=== PATIENT | female | born 2000 | race Caucasian/White ===

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

== ENCOUNTER 2020-06-22 14:12 | Emergency (ER) | payer BC, SELFPAY ==
[2020-06-22 14:31] VITALS: BP 130/90; PULSE 98; RESP 18; TEMP 36.6; O2SAT 97; BMI 29.6
--- NOTE | 2020-06-22 14:52 | HMH.EDUTC ---
[facility] [place] Disposition Clinical Impression: Exposure to COVID-19 virus Disposition: Home, Self-Care Condition on Discharge: Good Instructions: Preventing the Spread of Coronavirus Discharge Instructions Additional Instructions: Drink plenty of fluids. Take tylenol for pain or fever. Follow up with your regular doctor. GO TO THE ER FOR ANY WORSENING SYMPTOMS Referrals: Alejandro Avilez MD [Primary Care Provider] - Time of Disposition: 14:56 Medical Decision Making - Medical Records Medical records reviewed: No: I reviewed the patient's medical records. - Jasiel Inquiry Pt receiving controlled substance: No Vital Signs: 06/22/20 14:31 06/22/20 15:12 Temperature 97.9 F 97.9 F Temperature Source Oral Oral Pulse Rate 98 H Pulse Rate [Radial] 98 H Respiratory Rate 18 18 Blood Pressure 130/90 Blood Pressure [Right Arm] 130/90 Blood Pressure Mean [Right Arm] 103 Blood Pressure Source Automatic Cuff Blood Pressure Source [Right Arm] Automatic Cuff Blood Pressure Position Sitting Blood Pressure Position [Right Arm] Sitting 02 Sat by Pulse Oximetry 97 Oxygen Delivery Method Room Air Room Air Orders (Tests/Meds): ORDERS Category Date Time Status Covid-19 Nasal PCR ([facility]) Routine Lab 06/22/20 14:27 Received [facility] HPI - General Stated complaint: Covid test Time Seen by Provider: 06/22/20 14:52 Mode of Arrival: Ambulatory Source of Information: Patient Limitations: No Limitations Description of Symptoms (Recalled from Triage Doc. by RN): covid exposure HEENT Symptoms (Recalled from RN notes): No Resp Symptoms (Recalled from RN notes): No Skin Symptoms (Recalled from RN notes): No MS Symptoms (Recalled from RN notes): No Functional Status (Recalled from RN notes): wnl - History of Present Illness Provider Complaint: She was exposed to covid while at college. She denies any symptoms. - Related Data Home Medications Medication Instructions Recorded Confirmed Norgestimate-Ethinyl Estradiol 1 each PO DAILY 07/07/18 12/22/18 [Ortho Tri-Cyclen 28 Tablet] venlafaxine 37.5 mg tablet 37.5 mg PO BID 12/22/18 12/22/18 Previous Rx's Medication Instructions Recorded Azithromycin [Z-Iron 250mg Tab*] 250 mg PO UD DOSE PK #6 tab 01/24/20 Brompheniramine/Pseudoephed/Dm 5 - 10 ml PO Q46H 10 Days #180 ml 09/02/19 [Bromfed Dm Cough Syrup] Allergies Allergy/AdvReac Type Severity Reaction Status Date / Time Penicillins [PENICILLINS] Allergy Mild Hives Verified 12/22/18 16:59 - Worker's Comp Is this a Worker's Comp case?: No H History - Hepatitis A Screen Drug use history?: No High risk sexual behaviors?: No History of sexually transmitted infection?: No Currently employed?: No Childcare worker?: No Do you have indoor plumbing?: Yes Do you have electricity?: Yes Attestation statement:: This patient has been screened for Hepatitis A risk factors. I have reviewed the patient's past medical history: Yes Comment: Allergies Laterality Cases: Bilateral: Myringotomy (Ear Tubes) - Social History Smoking Status: Never smoker Alcohol Intake: never Occupational Status: student Housing: house Household Members: family Family Hx:: Diabetes, Heart Attack, Hypertension ROS Obtained: Yes All systems reviewed & no additional complaints - Constitutional Constitutional: Reports system reviewed and no additional complaints, except as docu - Eyes Eyes: Reports system reviewed and no additional complaints, except as docu - ENT Ears, Nose, Mouth, and Throat: Reports system reviewed and no additional complaints, except as docu - Cardiovascular Cardiovascular: Reports system reviewed and no additional complaints, except as docu Physical Exam - General General appearance: alert, in no apparent distress - Head Head exam: atraumatic, normocephalic, normal inspection - Eye Eye exam: Present: normal appearance, PERRL, EOMI - ENT ENT exam: Present: normal exam,
[2020-06-22 15:12] VITALS: BP 130/90; PULSE 98; RESP 18; TEMP 36.6; O2SAT 97
== END 2020-06-22 15:13 | disposition home or self-care (01) ==
PROVIDERS: Emergency Provider Nurse Practitioner Family; PCP Family Medicine
DX: Z20.828 Contact with and (suspected) exposure to other viral communicable diseases (principal); Z88.0 Allergy status to penicillin
CPT/HCPCS: 99201; U0003

== ENCOUNTER 2020-07-28 10:59 | Emergency (ER) | payer BC, SELFPAY ==
[2020-07-28 11:05] VITALS: BP 145/89; PULSE 120; RESP 20; TEMP 37.1; O2SAT 97; BMI 30.7
--- NOTE | 2020-07-28 11:28 | HMH.EDUTC ---
[facility] Disposition Clinical Impression: Exposure to COVID-19 virus Conjunctivitis Qualifiers: Conjunctivitis type: acute Acute conjunctivitis type: bacterial Laterality: right Qualified Code(s): H10.31 - Unspecified acute conjunctivitis, right eye Disposition: Home, Self-Care Condition on Discharge: Good Instructions: Conjunctivitis, DI for Conjunctivitis, Preventing the Spread of Coronavirus Discharge Instructions Additional Instructions: Use the eye drops as directed. Strict hand washing in the house hold, because conjunctivitis is very contagious. Follow up with your regular doctor. GO TO THE ER FOR ANY WORSENING SYMPTOMS OR CONCERNS Prescriptions: Sulfacetamide Sodium [Bleph-10] 1 drp EYE-BOTH Q3H 7 Days #1 bottle Transmission Status: Received by [id number] Referrals: Alejandro Avilez MD [Primary Care Provider] - Time of Disposition: 11:34 Medical Decision Making - Medical Records Medical records reviewed: No: I reviewed the patient's medical records. - Jasiel Inquiry Pt receiving controlled substance: No Vital Signs: 07/28/20 11:05 07/28/20 11:34 Temperature 98.8 F 98.8 F Temperature Source Oral Pulse Rate 120 H Pulse Rate [Right Brachial] 120 H Respiratory Rate 20 20 Blood Pressure 145/89 H Blood Pressure [Right Arm] 145/89 H Blood Pressure Mean [Right Arm] 107 Blood Pressure Source [Right Arm] Automatic Cuff Blood Pressure Position [Right Arm] Sitting 02 Sat by Pulse Oximetry 97 Oxygen Delivery Method Room Air - Lab Data Lab Results 07/28/20 11:10: SARS-CoV-2 (PCR) Detected [facility] HPI - General Stated complaint: covid exposure, swollen eye Time Seen by Provider: 07/28/20 11:28 Mode of Arrival: Ambulatory Source of Information: Patient Limitations: No Limitations Description of Symptoms (Recalled from Triage Doc. by RN): PATIENT C/O RIGHT EYE ITCHY, SWOLLEN, BURNING AND RUNNING SINCE YESTERDAY. ALSO REQUESTING COVID TEST D/T EXPOSURE, NO SYMPTOMS HEENT Symptoms (Recalled from RN notes): Yes Resp Symptoms (Recalled from RN notes): No Skin Symptoms (Recalled from RN notes): No MS Symptoms (Recalled from RN notes): No Functional Status (Recalled from RN notes): WNL - History of Present Illness Provider Complaint: She states that she has been having right eye discomfort since yesterday. She denies any injury or foreign body. She denies that her vision is decreased in the eye. She was also exposed to covid-19 and needs a test. She denies any fever, chills, cough or other symptoms. - Related Data Home Medications Medication Instructions Recorded Confirmed Norgestimate-Ethinyl Estradiol 1 each PO DAILY 07/07/18 07/28/20 [Ortho Tri-Cyclen 28 Tablet] venlafaxine 37.5 mg tablet 37.5 mg PO BID 12/22/18 07/28/20 Previous Rx's Medication Instructions Recorded Sulfacetamide Sodium [Bleph-10] 1 drp EYE-BOTH Q3H 7 Days #1 bottle 07/28/20 Allergies Allergy/AdvReac Type Severity Reaction Status Date / Time Penicillins [PENICILLINS] Allergy Mild Hives Verified 12/22/18 16:59 - Worker's Comp Is this a Worker's Comp case?: No [facility] History - Hepatitis A Screen Drug use history?: No High risk sexual behaviors?: No History of sexually transmitted infection?: No Currently employed?: No Childcare worker?: No Do you have indoor plumbing?: Yes Do you have electricity?: Yes Attestation statement:: This patient has been screened for Hepatitis A risk factors. I have reviewed the patient's past medical history: Yes Comment: Allergies Laterality Cases: Bilateral: Myringotomy (Ear Tubes) - Social History Smoking Status: Never smoker Alcohol Intake: never Occupational Status: other Housing: house Household Members: family Family Hx:: Diabetes, Heart Attack, Hypertension ROS Obtained: Yes All systems reviewed & no additional complaints - Constitutional Constitutional: Denies chills, Denies fever(s) - Eyes Eyes: Reports as per HPI,
[2020-07-28 11:34] VITALS: BP 145/89; PULSE 120; RESP 20; TEMP 37.1; O2SAT 97
[2020-07-29 09:29] LABS: Covid-19 Nasal PCR Sendout UK DETECTED
--- NOTE | 2020-07-29 09:29 | PC.NURSE ---
VM left for patient to return call
--- NOTE | 2020-07-29 09:42 | PC.NURSE ---
PATIENT NOTIFIED OF POSITIVE COVID RESULTS
== END 2020-07-28 11:36 | disposition home or self-care (01) ==
PROVIDERS: Emergency Provider Nurse Practitioner Family; PCP Family Medicine
DX: U07.1 COVID-19 (principal); H10.31 Unspecified acute conjunctivitis, right eye; Z88.0 Allergy status to penicillin
CPT/HCPCS: 99201; U0003

== ENCOUNTER 2021-07-09 18:45 | Emergency (ER) | payer BC, SELFPAY ==
[2021-07-09 19:33] VITALS: BP 122/85; PULSE 113; RESP 18; TEMP 37.3; O2SAT 97; BMI 30.4
[2021-07-09 19:36] LABS: UTC Strep Screen (Rapid) Negative (Negative)
--- NOTE | 2021-07-09 20:08 | HMH.EDUTC ---
[facility] Disposition Clinical Impression: Pharyngitis Qualifiers: Pharyngitis/tonsillitis etiology: unspecified etiology Qualified Code(s): J02.9 - Acute pharyngitis, unspecified Disposition: Home, Self-Care Condition on Discharge: Good Instructions: DI for Strep Throat, Preventing the Spread of Coronavirus Discharge Instructions Additional Instructions: Take tylenol or ibuprofen for pain or fever. Take the medications as directed. Follow up with your regular doctor. GO TO THE ER FOR ANY WORSENING SYMPTOMS Throw your tooth brush away and get a new one. Quarantine until you know the results of your covid-19 test. If it is positive, the health department should call you and give you further instructions about your length of Quarantine and other things. Notify your school or workplace of your results and follow their instructions regarding return to work/school. Prescriptions: Brompheniramine/Pseudoephed/Dm [Bromfed Dm Cough Syrup] 5 ml PO Q6HP PRN #240 ml PRN Reason: Cough Transmission Status: Pending to [facility] Azithromycin [Z-Iron 250mg Tab*] 250 mg PO UD DOSE PK #6 tab Transmission Status: Pending to [facility] Referrals: Alejandro Avilez MD [Primary Care Provider] - Forms: Work/School Release Time of Disposition: 20:22 Medical Decision Making - Medical Records Medical records reviewed: No: I reviewed the patient's medical records. - Jasiel Inquiry Pt receiving controlled substance: No Vital Signs: 07/09/21 19:33 Temperature 99.2 F Temperature Source Oral Pulse Rate [Left] 113 H Respiratory Rate 18 Blood Pressure [Right Arm] 122/85 Blood Pressure Mean [Right Arm] 97 02 Sat by Pulse Oximetry 97 - Lab Data Lab results reviewed: Yes: I reviewed the patient's lab results. Lab Results 07/09/21 19:23: Strep Scn Rapid Clinic Negative Orders (Tests/Meds): ORDERS Category Date Time Status Strep Screen Confirmation Routine Micro 07/09/21 19:23 Received [facility] [place] HPI - General Stated complaint: sore throat, maryellen Time Seen by Provider: 07/09/21 20:08 Mode of Arrival: Ambulatory Source of Information: Patient Limitations: No Limitations Description of Symptoms (Recalled from Triage Doc. by RN): pt c/o a sore throat and congestion since this am. HEENT Symptoms (Recalled from RN notes): Yes (sore throat and congestion) Resp Symptoms (Recalled from RN notes): No Skin Symptoms (Recalled from RN notes): No MS Symptoms (Recalled from RN notes): No Functional Status (Recalled from RN notes): wnl - History of Present Illness Provider Complaint: She states that since last night she has had a sore throat. Throughout today, she started having a low grade fever and chills also. She denies any chest congestion or cough. She gets strep throat occasionally and it always feels like this when it starts. - Related Data Home Medications Medication Instructions Recorded Confirmed Norgestimate-Ethinyl Estradiol 1 each PO DAILY 07/07/18 07/28/20 [Ortho Tri-Cyclen 28 Tablet] venlafaxine 37.5 mg tablet 37.5 mg PO BID 12/22/18 07/28/20 Previous Rx's Medication Instructions Recorded Sulfacetamide Sodium [Bleph-10] 1 drp EYE-BOTH Q3H 7 Days #1 bottle 07/28/20 Azithromycin [Z-Iron 250mg Tab*] 250 mg PO UD DOSE PK #6 tab 07/09/21 Brompheniramine/Pseudoephed/Dm 5 ml PO Q6HP PRN #240 ml 07/09/21 [Bromfed Dm Cough Syrup] Allergies Allergy/AdvReac Type Severity Reaction Status Date / Time Penicillins [PENICILLINS] Allergy Mild Hives Verified 12/22/18 16:59 - Worker's Comp Is this a Worker's Comp case?: No [facility] History - Hepatitis A Screen Drug use history?: No High risk sexual behaviors?: No History of sexually transmitted infection?: No Currently employed?: No Childcare worker?: No Do you have indoor plumbing?: Yes Do you have electricity?: Yes Attestation statement:: This patient has been screened for Hepatitis A risk factors.
[2021-07-09 20:30] VITALS: BP 122/85; PULSE 113; RESP 18; TEMP 37.3
== END 2021-07-09 20:32 | disposition home or self-care (01) ==
PROVIDERS: Emergency Provider Nurse Practitioner Family; PCP Family Medicine
DX: J02.9 Acute pharyngitis, unspecified (principal); Z20.822 Contact with and (suspected) exposure to COVID-19; Z88.0 Allergy status to penicillin
CPT/HCPCS: 87880; 99203; C9803; G0463; U0003; U0005

== ENCOUNTER 2023-03-11 17:42 | Outpatient (CLI) | payer BC, SELFPAY ==
[2023-03-11 17:51] VITALS: BMI 37.0
== END 2023-03-11 17:57 | disposition home or self-care (01) ==
LOC: UTC.OUT 17:44
PROVIDERS: PCP Family Medicine; Visit Provider Nurse Practitioner Family
DX: Z11.1 Encounter for screening for respiratory tuberculosis (principal)
CPT/HCPCS: 86580

== ENCOUNTER 2024-05-10 11:28 | Emergency (ER) | payer OTHER, SELFPAY ==
[2024-05-10 11:50] VITALS: BP 114/76; PULSE 85; RESP 20; TEMP 36.8; O2SAT 98; BMI 37.0
--- NOTE | 2024-05-10 11:51 | ED_ITS ---
Discharge Plan Disposition Patient Disposition: Home, Self-Care Condition: Good Prescriptions Prescriptions: New azithromycin [Zithromax] 250 mg tablet 250 mg PO UD DOSE PK Qty: 6 0RF Rx Instructions: Take two (2) tablets today, then one (1) tablet days #2 thru #5 methylprednisolone 4 mg Tablets,Dose Pack 4 mg PO DIRECTED 6 Days Qty: 21 0RF Rx Instructions: Take 1 pack as directed for 6 days nhutuvibviiecwa-yhpvgqfgz-PZ [Bromfed DM] 2-30-10 mg/5 mL Syrup 5 ml PO Q6H PRN (Reason: Cough) Qty: 240 0RF No Action venlafaxine 37.5 mg tablet 75 mg PO BID Referrals Follow up/Referrals: Alejandro Avilez MD [Primary Care Provider] - See instructions Activity Restrictions/Add. Instructions Additional Instructions/Restrictions: Drink plenty of fluids. Take tylenol or ibuprofen for pain or fever. Take the medications as directed. Follow up with your regular doctor. GO TO THE ER FOR ANY WORSENING SYMPTOMS Clinical Impressions Clinical Impression: Sinusitis, Acute viral syndrome Pharyngitis Qualifiers: Pharyngitis/tonsillitis etiology: unspecified etiology Qualified Code(s): J02.9 - Acute pharyngitis, unspecified Stand Alone Forms Stand Alone Forms: Work/School Release Instructions Patient Instructions: Sinusitis, DI for Sinusitis Print Language Print Language: Turkmen Discharge ED Provider: Ricki Fernandez [facility] [place] H[place] General Stated complaint: head congestion, sore throat Time Seen by Provider: 05/10/24 11:51 Related Data Home Medications ?Medication ?Instructions ?Recorded ?Confirmed venlafaxine 37.5 mg tablet 75 mg PO BID Anxiety 12/22/18 05/10/24 Previous Rx's ?Medication ?Instructions ?Recorded azithromycin 250 mg tablet 250 mg PO UD DOSE PK #6 tabs 05/10/24 (Zithromax) mjsfrbklonmfccf-zkzfbuglmqibxba-NV 5 ml PO Q6H PRN Cough #240 mL 05/10/24 2 mg-30 mg-10 mg/5 mL oral syrup (Bromfed DM) methylprednisolone 4 mg tablets in 4 mg PO DIRECTED 6 days #21 tabs 05/10/24 a dose pack Allergies Allergy/AdvReac Type Severity Reaction Status Date / Time Penicillins [PENICILLINS] Allergy Mild Hives Verified 12/22/18 16:59 [facility] Disclaimer: The information contained in this section may have been updated after the patient was seen, as this information can be updated by other users. Medical History (Updated 05/10/24 @ 12:47 by Ricki Fernandez APRN) Anxiety Migraine Surgical History (Updated 05/10/24 @ 12:03 by Jane Trinidad RN) History of tympanostomy tube placement History of tonsillectomy Social History Smoking Status: Never smoker second hand exposure: No alcohol intake: never current occupational status: other Travel in the last 8 weeks: None household members: family housing: house ROS Obtained: Yes All systems reviewed & no additional complaints except as documented Constitutional Constitutional: Reports chills and Reports fever(s) Eyes Eyes: Denies eye discharge ENT Ears, Nose, Mouth, and Throat: Reports as per HPI Cardiovascular Cardiovascular: Denies chest pain Respiratory Respiratory: Denies chest congestion and Reports cough Gastrointestinal Gastrointestingal: Reports nausea; Denies abdominal pain, constipation, cramping, diarrhea or vomiting Musculoskeletal Musculoskeletal: Denies arthralgias Integumentary/Breasts Skin/Breast: Denies rash Neurologic Neurologic: Denies paresthesias Physical Exam General General appearance: alert and in no apparent distress Head Head exam: atraumatic, normocephalic and normal inspection Eye Eye exam: Present normal appearance, PERRL and EOMI ENT ENT exam: Present mucous membranes moist and normal external ear exam Expanded ENT Exam TM/Canal exam: Bilateral TM: erythema and bulging Nose exam: Absent sinus tenderness Mouth exam: Present normal external inspection; Absent drooling Teeth exam: Present normal inspection Throat exam: Present tonsillar erythema, tonsillomegaly and tonsillar exudate Neck Neck exam: Present normal inspection, full ROM and trachea midline; Absent tenderness, meningismus or lymphadenopathy Chest Chest inspection: Present normal inspection and symmetric chest wall rise; Absent tenderness Respiratory Respiratory exam: Present normal lung sounds bilaterally; Absent respiratory distress, wheezes, stridor or accessory muscle use Cardiovascular Cardiovascular exam: Present regular rate and normal rhythm; Absent systolic murmur or diastolic murmur Abdominal Exam Abdominal exam: Present soft and normal bowel sounds; Absent distention, tenderness, guarding, rebound or rigidity Extremities Exam Extremities exam: Present normal inspection and normal capillary refill; Absent calf tenderness Back Exam Back exam: Present normal inspection and full ROM; Absent tenderness, CVA tenderness (R) or CVA tenderness (L) Neurological Exam Neurological exam: Present alert, oriented X3 and CN II-XII intact Psychiatric Psychiatric exam: Present normal affect and normal mood Skin Skin exam: Present warm, dry, intact and normal color Medical Decision Making Medical Records Medical records reviewed: No I reviewed the patient's medical records. Screening: Per USPSTF and CDC recommendations, given the prevalence of disease in our [facility], it is our hospital?s policy to screen for HIV and viral Hepatitis for all patients aged 18 and over and those with ongoing risk factors. Jasiel Inquiry Pt receiving controlled substance: No Lab Data Lab results reviewed: Yes I reviewed the patient's lab results.
[2024-05-10 12:00] LABS: UTC Strep Screen (Rapid) Negative (Negative)
[2024-05-10 12:54] VITALS: BP 114/76; PULSE 85; RESP 20; TEMP 36.8; O2SAT 98
[2024-05-10 12:59] LABS: Influenza A, PCR Not Detected (NotDetected); Influenza B, PCR Not Detected (NotDetected)
[2024-05-10 14:02] LABS: Coronavirus 19, PCR Detected (NotDetected)
== END 2024-05-10 12:57 | disposition home or self-care (01) ==
PROVIDERS: Emergency Provider Nurse Practitioner Family; PCP Family Medicine
DX: J02.9 Acute pharyngitis, unspecified (principal)
CPT/HCPCS: 87636; 87880; 99212; G0381

== ENCOUNTER 2024-07-26 10:34 | Emergency (ER) | payer SELFPAY ==
[2024-07-26 10:35] VITALS: BP 132/91; PULSE 97; RESP 16; TEMP 36.7; O2SAT 98; BMI 36.5
--- NOTE | 2024-07-26 10:37 | PC.NURSE ---
supervisor photocomposition notified of employee needle stick
--- NOTE | 2024-07-26 11:25 | PC.NURSE ---
callled and talked to Mindi at . Pt had a Hep B titer October 2023 that was good, and a TDAP vax 2023
[2024-07-26 11:31] LABS: Activated Partial Thrombo Time 26.7 seconds (22.8-30.6); Basophils # 0.1 K/mm3 (0-0.2); Basophils % 1.6 % (0.1-2.0); Eosinophils # 0.1 K/mm3 (0.0-0.4); Eosinophils % 1.6 % (0.1-12.0); Hematocrit 39.7 % (37.0-47.0); Hemoglobin 13.6 g/dL (12.2-16.2); INR 0.95 (0.9-1.1); Lymphocytes # 2.9 K/mm3 (0.7-4.5); Lymphocytes % 34.5 % (10-50); Mean Corpuscular HGB Conc 34.1 g/dL (31.8-35.4); Mean Corpuscular Hemoglobin 29.3 pg (27.0-31.2); Mean Corpuscular Volume 85.9 fl (81-99); Mean Platelet Volume 8.6 fl (7.4-10.4); Monocytes # 0.5 K/mm3 (0.1-1.0); Monocytes % 5.9 % (1.7-9.3); Neutrophils # 4.7 K/mm3 (1.8-7.8); Neutrophils % 56.5 % (37.0-80.0); Platelet Count 375 K/mm3 (142-424); Prothrombin Time 10.7 seconds (10.1-12.5); Red Blood Count 4.62 M/mm3 (4.20-5.40); Red Cell Distribution Width 14.2 % (11.5-17.5); White Blood Count 8.3 K/mm3 (4.8-10.8)
[2024-07-26 11:32] LABS: Alanine Aminotransferase 25 U/L (12-78); Albumin Level 4.5 g/dl (3.5-5.0); Alkaline Phosphatase 70 U/L (38-126); Aspartate Amino Transferase 41 U/L (14-36); Bilirubin,Direct 0.3 mg/dl (0.0-0.4); Bilirubin,Indirect 0.2 mg/dL (0.0-0.9); Bilirubin,Total 0.5 mg/dl (0.2-1.3); Bilirubin,Unconjugated 0.2 mg/dL (0.0-1.1); Total Protein,Serum 7.4 g/dl (6.3-8.2)
[2024-07-26] MEDS: ONDANSETRON 4MG ODT 4 MG SL (11:33)
[2024-07-26] MEDS: EMTRICITABINE/TENOFOVIR 200/300MG TAB 1 EACH PO (11:33)
[2024-07-26] MEDS: RALTEGRAVIR 400MG TABLET 400 MG PO (11:34)
[2024-07-26 12:17] VITALS: BP 126/83; PULSE 89; RESP 18; TEMP 36.6; O2SAT 95
--- NOTE | 2024-07-26 12:17 | ED_ITS ---
Discharge Plan Disposition Patient Disposition: Home, Self-Care Condition: Good Prescriptions Prescriptions: New ondansetron 4 mg tablet,disintegrating 4 mg PO Q8H PRN (Reason: nausea and vomiting) 4 Days Qty: 12 0RF raltegravir 400 mg tablet 400 mg PO BID 28 Days Qty: 56 0RF emtricitabine-tenofovir (TDF) [Truvada] 200-300 mg tablet 1 tab PO DAILY 28 Days Qty: 28 0RF No Action venlafaxine 37.5 mg tablet 75 mg PO BID azithromycin [Zithromax] 250 mg tablet 250 mg PO UD DOSE PK Qty: 6 0RF Rx Instructions: Take two (2) tablets today, then one (1) tablet days #2 thru #5 methylprednisolone 4 mg Tablets,Dose Pack 4 mg PO DIRECTED 6 Days Qty: 21 0RF Rx Instructions: Take 1 pack as directed for 6 days losjjzgnkcfwjjp-utfmlfzqe-JT [Bromfed DM] 2-30-10 mg/5 mL Syrup 5 ml PO Q6H PRN (Reason: Cough) Qty: 240 0RF Referrals Follow up/Referrals: Alejandro Avilez MD [Primary Care Provider] - See instructions Activity Restrictions/Add. Instructions Additional Instructions/Restrictions: You were evaluated in the emergency department today. Out of an abundance of precaution, we are starting you on postexposure prophylaxis for HIV. 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 by RN): Pt presents to ER after a needle-stick to L thumb. States that she was securing the needle from a pt's thyroid biopsy into it's container, when it slipped and stuck her left thumb. States it did not bleed. 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 Pt did wash her thumb/hand after this event. History of Present Illness HPI narrative: This patient is a 23-year-old female who denies significant past medical history presenting to the emergency department for evaluation with concern for needle stick injury and blood exposure upstairs. 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 She does have small skin wound but it did not bleed. The patient undergoing the biopsy/source of blood exposure has unknown hepatitis/HIV status with unknown risk factors. She did wash her hands thoroughly with soap and water afterward. Supervisors have been notified. Patient denies any significant past medical history. She is up-to-date on vaccinations, including hepatitis and Tdap. We verified with a chart that the patient had good hepatitis B titers in October and also had Tdap booster at that time. Related Data Home Medications ?Medication ?Instructions ?Recorded ?Confirmed venlafaxine 37.5 mg tablet 75 mg PO BID Anxiety 12/22/18 05/10/24 Previous Rx's ?Medication ?Instructions ?Recorded azithromycin 250 mg tablet 250 mg PO UD DOSE PK #6 tabs 05/10/24 (Zithromax) livtkuttujohjcz-aigcmjzegxfupzn-RA 5 ml PO Q6H PRN Cough #240 mL 05/10/24 2 mg-30 mg-10 mg/5 mL oral syrup (Bromfed DM) methylprednisolone 4 mg tablets in 4 mg PO DIRECTED 6 days #21 tabs 05/10/24 a dose pack emtricitabine 200 mg-tenofovir 1 tab PO DAILY 4 weeks #28 tabs 07/26/24 disoproxil fumarate 300 mg tablet (Truvada) ondansetron 4 mg disintegrating 4 mg PO Q8H PRN nausea and 07/26/24 tablet vomiting 4 days #12 tabs raltegravir 400 mg tablet 400 mg PO BID 4 weeks #56 tabs 07/26/24 Allergies Allergy/AdvReac Type Severity Reaction Status Date / Time Penicillins (PENICILLINS) Allergy Mild Hives Verified 12/22/18 16:59 [facility] Disclaimer: The information contained in this section may have been updated after the patient was seen, as this information can be updated by other users. Medical History Anxiety Migraine Surgical History History of tympanostomy tube placement History of tonsillectomy Social History Smoking Status: Never smoker second hand exposure: No alcohol intake: never current occupational status: other Travel in the last 8 weeks: None household members: family housing: house Have you lived/traveled outside US in past 30 days?: No Contact w/someone who lives/traveled outside US past 30 days?: No Exposure to someone with infectious disease in past 14 days?: No Do you have a fever (greater than 100.4 F or 38 C)?: No Have you tested positive for COVID-19: No Exposed to someone with COVID-19 in past 14 days?: No Do you have a sore throat?: No Do you have a cough?: No Do you have any weakness?: No Do you have any diarrhea?: No Are you experiencing any unusual bleeding?: No Do you have any muscle aches/pain?: No Do you have any abdominal pain?: No Are you experiencing loss of taste or smell?: No Other Medical History Have you received the Flu Vaccine for this season: No Have you received the Pneumonia Vaccine: No ROS Obtained: Yes All systems reviewed & no additional complaints except as documented Physical Exam General General appearance: alert and in no apparent distress Head Head exam: atraumatic and normocephalic Eye Eye exam: Present normal appearance, PERRL and EOMI ENT ENT exam: Present normal exam, normal oropharynx, mucous membranes moist and normal external ear exam Neck Neck exam: Present normal inspection, full ROM and trachea midline; Absent tenderness Chest Chest inspection: Present normal inspection and symmetric chest wall rise; Absent tenderness Respiratory Respiratory exam: Present normal lung sounds bilaterally; Absent respiratory distress, wheezes, stridor or accessory muscle use Cardiovascular Cardiovascular exam: Present regular rate and normal rhythm Abdominal Exam Abdominal exam: Present soft; Absent distention, tenderness or guarding Extremities Exam Extremities exam: Present normal inspection, full ROM and normal capillary refill; Absent tenderness or edema Expanded Upper Extremity Exam Left: Hand L/R back image: 2 1. punctate needle stick wound Back Exam Back exam: Present normal inspection and full ROM; Absent tenderness Neurological Exam Neurological exam: Present alert, oriented X3, CN II-XII intact and normal gait; Absent motor sensory deficit Psychiatric Psychiatric exam: Present normal affect and normal mood Skin Skin exam: Present warm and dry Medical Decision Making Medical Records Medical records reviewed: Yes I reviewed the patient's medical records. Screening: Per USPSTF and CDC recommendations, given the prevalence of disease in our region, it is our hospital?s policy to screen for HIV and viral Hepatitis for all patients aged 18 and over and those with ongoing risk factors. Jasiel Inquiry Pt receiving controlled substance: No Vital Signs: 07/26/24 10:35 Temperature 98.0 F Temperature Source Oral Pulse Rate [Right] 97 H Respiratory Rate 16 Blood Pressure [Right Arm] 132/91 H Blood Pressure Mean [Right Arm] 104 Blood Pressure Source [Right Arm] Automatic Cuff 02 Sat by Pulse Oximetry 98 Oxygen Delivery Method Room Air Lab Data Lab results reviewed: Yes I reviewed the patient's lab results. Lab Results 07/26/24 11:10: WBC 8.3, RBC 4.62, Hgb 13.6, Hct 39.7, MCV 85.9, MCH 29.3, MCHC 34.1, RDW 14.2, Plt Count 375, MPV 8.6, Neut % (Auto) 56.5, Lymph % (Auto) 34.5, [place] % (Auto) 5.9, Eos % (Auto) 1.6, Baso % (Auto) 1.6, Neut # (Auto) 4.7, Lymph # (Auto) 2.9, [place] # (Auto) 0.5, Eos # (Auto) 0.1, Baso # (Auto) 0.1, PT 10.7, INR 0.95, APTT 26.7, Total Bilirubin 0.5, Direct Bilirubin 0.3, Conjugated Bilirubin 0.0, Indirect Bilirubin 0.2, Unconjugated Bilirubin 0.2, AST 41 H, ALT 25, Alkaline Phosphatase 70, Total Protein 7.4, Albumin 4.5 07/26/24 11:10 Orders (Tests/Meds): ED MEDICATIONS Discontinued Medications Generic Name Dose Route Start Last Admin Trade Name Freq PRN Reason Stop Dose Admin Emtricitabine/Tenofovir 1 each 07/26/24 11:21 07/26/24 11:33 Emtricitabine/Tenofovir 200/300mg Tab PO 07/26/24 11:22 1 each ONCE ONE Administration Ondansetron HCl 4 mg 07/26/24 11:21 07/26/24 11:33 Ondansetron 4mg Odt SL 12/17/24 11:22 4 mg ONCE ONE Administration Raltegravir 400 mg 07/26/24 11:21 07/26/24 11:34 Raltegravir 400mg Tablet PO 07/26/24 11:22 400 mg ONCE ONE Administration ORDERS Category Date Time Status Activated Partial Thrombo Time Stat Lab 07/26/24 11:10 Completed CBC w/Auto Diff [Complete Blood Count Auto Diff] Stat Lab 07/26/24 11:10 Completed HIV Combo Stat Lab 07/26/24 11:10 Received Hepatitis B Surf Ab Quant Stat Lab 07/26/24 11:10 Received Hepatitis B surface antigen screen [HBsAg Screen] Stat Lab 07/26/24 11:10 Received Hepatitis C Antibody Stat Lab 07/26/24 11:10 Received Liver Panel Stat Lab 07/26/24 11:10 Completed Prothrombin Time INR Stat Lab 07/26/24 11:10 Completed UDS [Drug Screen,Urine] Stat Lab 07/26/24 10:50 Ordered Medical Decision Narrative: In summary, this patient is a 23-year-old female presenting to the Emergency Department for evaluation of needlestick injury with bloodborne pathogen exposure. Differential diagnoses considered include but are not limited to HIV exposure, hepatitis exposure. Ruling out the most morbid conditions drove assessment. On exam, patient does have a small punctate wound from needlestick injury. 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 Unknown hepatitis/HIV status/risk factors for the patient whose blood she was exposed to. Based on our postexposure hospital protocol, labs were ordered for baseline including CBC, liver panel, hepatitis testing, HIV testing. AST is very mildly elevated at baseline but otherwise labs are reassuring. Patient is already vaccinated against hepatitis B with good titers and also is up-to-date on Tdap. After shared decision making of risk versus benefit, patient elects to go ahead and proceed with postexposure prophylaxis. She was given first dose of Truvada and raltegravir here. I also gave her Zofran to combat any potential nausea as a side effect. After our protocol for the hospital was followed and patient was given instructions for follow-up and repeat labs, she was deemed to be appropriate for discharge. She was given prescriptions for 4 weeks of Truvada and raltegravir as well as Zofran to have as needed for nausea and vomiting. She was given instructions for use, strict return precautions, and she was discharged after all questions were answered. Critical Care Critical Care Time Critical Care Time: No
[2024-07-26 12:31] LABS: HIV Combo NEGATIVE (Negative)
[2024-07-26 12:42] LABS: COC Drug Screen In House Collection Only
[2024-07-27 06:22] LABS: Hepatitis B Surf Ab Quant 6.7 mIU/mL (Immunity>10); Hepatitis B Surface Antigen Negative (Negative); Hepatitis C Antibody Non Reactive (Non Reactive)
== END 2024-07-26 12:19 | disposition home or self-care (01) ==
PROVIDERS: Emergency Provider Emergency Medicine; PCP Family Medicine
DX: S61.032A Puncture wound without foreign body of left thumb without damage to nail, initial encounter (principal); W46.1XXA Contact with contaminated hypodermic needle, initial encounter; M79.645 Pain in left finger(s); Z77.21 Contact with and (suspected) exposure to potentially hazardous body fluids
CPT/HCPCS: 80076; 80305; 85025; 85610; 85730; 86706; 87340; 87380; 87389; 99283; Q0162

== ENCOUNTER 2024-10-21 14:33 | Outpatient (CLI) | payer OTHER, SELFPAY ==
[2024-10-21 15:42] LABS: HCG,Quantitative 631 mIU/ml (0-5.42)
[2024-10-22 05:21] LABS: Progesterone 13.2 ng/mL (.)
== END 2024-10-21 23:59 | disposition home or self-care (01) ==
LOC: LAB 14:35
PROVIDERS: PCP Family Medicine; Visit Provider Obstetrics & Gynecology
DX: Z32.01 Encounter for pregnancy test, result positive (principal)
CPT/HCPCS: 36415; 84144; 84702

== ENCOUNTER 2024-10-25 09:51 | Outpatient (CLI) | payer OTHER, SELFPAY ==
[2024-10-25 11:37] LABS: HCG,Quantitative 2849 mIU/ml (0-5.42)
== END 2024-10-25 23:59 | disposition home or self-care (01) ==
LOC: LAB 09:52
PROVIDERS: PCP Family Medicine; Visit Provider Obstetrics & Gynecology
DX: Z34.91 Encounter for supervision of normal pregnancy, unspecified, first trimester (principal); Z3A.01 Less than 8 weeks gestation of pregnancy
CPT/HCPCS: 36415; 84702

== ENCOUNTER 2024-11-18 15:55 | Outpatient (CLI) | payer OTHER, SELFPAY ==
--- OUTSIDE RECORDS SUMMARY | 2024-11-18 15:58 | XMS_ITS | Data Portability ---
Author Organization [facility] GUIDO Ware [facility] Address [address] [place] [address] Assessment No assessment recorded. Plan of Treatment Reminders Order Date Submit Date Provider Last Modified By Organization Details Last Modified Time Details Appointments None record ed. Lab None record ed. Referral None record ed. Procedures None record ed. Surgeries None record ed. Imaging None record ed. Medication Orders None record ed. Patient TargetsNo targets recorded. Patient Instructions Encounter Date Encounter Id Patient Instructions Last Modified By Organization Details Last Modified Time 03/25/2017 [id number] 1. Audio obtaine d and results reviewed with patient. 2. Recommended use of putty plugs or custom fitted plugs to keep water out of the left ear when getting the head wet. 3. 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 Problems No Known Problems Procedures Surgical History Date Name Laterality Status Provider Name and Address Organization Details Recorded Time 7 Tympanogram completed EDMUNDO GAY [address], [place], [address], [facility] 03/25/2017 15:59:52 7 Audiogram completed EDMUNDO GAY [address] [place], [address], [facility] 03/25/2017 15:59:50 Imaging Results None recorded. Procedure Notes None recorded. Medical Equipment None Reported. Allergies Allergen ID Allergen Name Allergen Category Reaction Reaction Severity Criticality Documentation Date Start Date Code Code System Note Provider Name and Address Organization Details Recorded Time 409852 Product containin g penicilli n (product) medicatio n Not available Not available Not available 03/25/2017 53618 8001 SNOMED [facility] 7 15:05:02 Medications Name Sig Start Date Stop Date Status Note LastModified by Organization Details LastModified Time azithromycin 250 mg tablet 2016 completed Not Available Not Available Not Available ofloxacin 0.3 % ear drops 2016 completed Not Available Not Available Not Available cefdinir 300 mg capsule 2016 completed Not Available Not Available Not Available Sprintec (28) 0.25 mg-0.035 mg tablet active Not Available Not Available No t Available Vitals Date Recorded Body weight Body mass index (BMI) Body height Body temperature Heart rate Systolic blood pressure Diastolic blood pressure Provider Name and Address Organization Details Last Updated DateTime 7 34786.2 g 26.3 kg/m2 172.72 cm 97.4 [degF] 71 /min 122 mm[Hg] 76 mm[Hg] [facility] 15:08:24 Date Recorded Body temperature Body height Heart rate Body mass index (BMI) Body weight Systolic blood pressure Diastolic blood pressure Provider Name and Address Organization Details Last Updated DateTime 7 98.2 [degF] 172.72 cm 77 /min 26.6 kg/m2 21333.6 6 g 134 mm[Hg] 68 mm[Hg] Mary Smallwoodill [facility] 7 13:16:16 Social History Question Answer Notes LastModified by Organizat ion Details LastModified Time Tobacco Smoking Status Never Smoker [facility] 03/25/2017 15:05:36 What Was The Date Of Your Most Recent Tobacco Screening? 03/25/2017 Information n ot available 09/27/2019 Sex: Unknown Functional Status None recorded. Mental Status None recorded. Family History Relationship Description Onset Age of this Age Resolved Age Notes LastModified by Organization Details LastModified Time Maternal Grandfather Heart disease [email or web address] Not available 2016 15:05:33 Medical History Condition Response Anesthesia Complications N Diabetes N Bleeding Disorder N Cancer N Hypertension N Alcohol Overuse/Alcohol Abuse N Gynecological HistoryNo gynecological history recorded. Obstetrics History GPAL:G 0 P 0 0 0 0 Past Encounters Encounter ID Performer Location Encounter Start Date Encounter Closed Date Diagnosis/Indication Diagnosis SNOMED-CT Code Diagnosis ICD10 Code Diagnosis Note [id number] SIDNEY HART MD [facility] [address] [place] [address] 03/25/2017 14:47:22 03/27/2017 09:47:10 Perforation of tympanic membrane 84479560 H72.92 - 10% medial-pos teriorly located Tympanosclerosis 2652025 1 H74.02 Left condu ctive hearing loss 2077529727 107 H90.12 - Mild [id number] EDMUNDO GAY [facility] [address] [place] [address] 03/25/2017 15:41:33 03/27/2017 09:38:02 Left conductive hearing loss 7416686595 107 H90.12 [id number] SIDNEY HART MD [place] [facility] [address] [place] [address] 05/22/2017 12:59:30 05/25/2017 13:07:30 Perforation of tympanic membrane 04782325 H72.92 left- stable 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 [facility] ([id number]) [id number] Alin Michelle [id number] Sylvia Michelle 03/25/2017 1 [facility] ([facility] [id number] Alin Michelle [id number] Sylvia Michelle 05/22/2017 1 [facility] ([facility]) [id number] Alin Michelle [id number] Sylvia Michelle Notes Date Note Type Note Provider Name and Address Organization Details Recorded Time 03/25/2017 text/html Alin Michelle presents today for evaluation of a left TM perforation. She has a history of ETD and recurrent otitis media as a child, requiring ear tubes 2-[address] Browning. Today, she reports that she was at the [facility] on 03/22/17 and she got forcefully sprayed with water directly in the left ear. She immediately experienced a loud, popping noise with dizziness. There was no pain, tinnitus, or hearing loss associated with the event. Alin was evaluated that same day in [facility] whom thought there may be a perforation and wanted her to be evaluated by ENT. Alin has been doing well the last 2 days. Her only issue is that everything or any sound is amplified in the left ear and it annoys her. There are no other concerns at this time. SIDNEY HART MD [address] [place] [address], [phone], [facility] 03/25/2017 16:16:30 05/22/2017 text/html Alin is here f or a follow up on her left ear. She states that the ear feels much better. She does not feel like there is still a hole in the ear. Her hearing feels normal. SIDNEY HART MD [address] [place] [address], [phone], [facility] 05/22/2017 13:26:16 OBGyn Episode No OBEpisode recorded.
[2024-11-18 16:22] LABS: Basophils # 0.1 K/mm3 (0-0.2); Basophils % 0.4 % (0.1-2.0); Eosinophils # 0.1 K/mm3 (0.0-0.4); Eosinophils % 0.9 % (0.1-12.0); Hematocrit 36.8 % (37.0-47.0); Hemoglobin 12.6 g/dL (12.2-16.2); Lymphocytes # 3.1 K/mm3 (0.7-4.5); Lymphocytes % 24.7 % (10-50); Mean Corpuscular HGB Conc 34.2 g/dL (31.8-35.4); Mean Corpuscular Hemoglobin 28.8 pg (27.0-31.2); Monocytes # 0.8 K/mm3 (0.1-1.0); Monocytes % 6.5 % (1.7-9.3); Neutrophils # 8.4 K/mm3 (1.8-7.8); Neutrophils % 67.1 % (37.0-80.0); Nucleated Red Blood Cells # 0 10^3/uL; Nucleated Red Blood Cells % 0 %; Platelet Count 398 K/mm3 (142-424); Red Blood Count 4.38 M/mm3 (4.20-5.40); Red Cell Distribution Width 13.2 % (11.5-17.5); Red Cell Distribution Width-SD 40.9 fL; White Blood Count 12.5 K/mm3 (4.8-10.8)
[2024-11-18 17:45] LABS: HIV Combo NEGATIVE (Negative)
[2024-11-18 17:54] LABS: Hepatitis C Ab Qual. W/ RFX NEGATIVE (Negative)
[2024-11-19 05:11] LABS: Hepatitis B Surface Antigen Negative (Negative)
[2024-11-19 08:12] LABS: Rubella Antibodies, IgG 1.02 index (Immune >0.99)
[2024-11-19 15:47] LABS: RPR W/RFX Titers Nonreactive (Nonreactive)
== END 2024-11-18 23:59 | disposition home or self-care (01) ==
LOC: LAB 15:56
PROVIDERS: PCP Family Medicine; Visit Provider Obstetrics & Gynecology
DX: Z34.01 Encounter for supervision of normal first pregnancy, first trimester (principal); Z3A.08 8 weeks gestation of pregnancy
CPT/HCPCS: 36415; 85025; 86592; 86762; 86803; 86850; 87340; 87389

== ENCOUNTER 2025-02-13 13:37 | Outpatient (CLI) | payer OTHER, SELFPAY ==
--- NOTE | 2025-02-13 14:00 | US_ITS ---
PROCEDURE: US OB /MATERNAL DETAIL CLINICAL INDICATION: need in 4 weeks; 20 week anatomy scan COMPARISON: No exams were available for comparison FINDINGS: Transabdominal sonographic images of the pelvis were obtained. From her established due date she is 20 weeks 3 days. Single viable intrauterine gestation. Cephalic position. Placenta: Posteriorplacenta grade 1. There is an average amount of fluid. The cervix appears satisfactory. Closed and measuring 3.42 cm in length. Complete survey performed and was unremarkable on the submitted images as in PACS. No discrete anomalies identified on survey imaging by technologist. Active fetus. Three-vessel cord with satisfactory umbilical cord insertion. 4- chamber heart noted. Situs, aortic arch, LVOT, RVOT, three-vessel view appear normal. Survey of brain & ventricles Unremarkable. Cerebellum, thalamus, choroid plexus, cisterna magna appear normal. Face and neck survey unremarkable. Profile, nasion, lips and nose appeared normal. Diaphragm and chest views unremarkable. Abdomen: Both kidneys noted and unremarkable. Stomach and bladder noted and satisfactory. Spine: Survey of the spine satisfactory with no anomalies identified nor imaged. Cervical, thoracic, lower spine appear normal. Both arms and legs noted. Amniotic Fluid: Adequate. MVP 3.98 cm. Measurements: Average ultrasound age 21weeks 0 days. Estimated due date by ultrasound age 1106/26/2025. Estimated weight 358g BPD = 21weeks 5days HC = 21weeks 1day AC = 21weeks FL = 19weeks 6days Growth Percentile= 49 Heart Rate = 147bpm Cerebellum = 19weeks 6days Humerus = 21weeks HC/AC is 1.19 FL/BPD is 0.61 FL/AC is 0.2 IMPRESSION: 1. Viable fetus in the cephalic presentation with posterior placenta grade 1. 2. Fluid is within normal limits with an MVP 3.98 cm. 3. Anatomical scan appears normal. 4. biometry is consistent with the dates. Dictated by: Abelardo Choi MD 02/13/2025 15:14 Abelardo Choi MD in [place] 02/13/2025 15:14
== END 2025-02-13 23:59 | disposition home or self-care (01) ==
LOC: RAD 13:37
PROVIDERS: PCP Family Medicine; Visit Provider Obstetrics & Gynecology
DX: O99.342 Other mental disorders complicating pregnancy, second trimester (principal); O99.212 Obesity complicating pregnancy, second trimester; F41.9 Anxiety disorder, unspecified; E66.9 Obesity, unspecified; Z3A.20 20 weeks gestation of pregnancy; O26.892 Other specified pregnancy related conditions, second trimester; Z67.91 Unspecified blood type, Rh negative
CPT/HCPCS: 76811

== ENCOUNTER 2025-04-05 08:43 | Outpatient (CLI) | payer OTHER, SELFPAY ==
[2025-04-05 10:42] LABS: Hematocrit 35.1 % (37.0-47.0); Hemoglobin 11.6 g/dL (12.2-16.2); Immature Granulocytes % 0.4 %; Mean Corpuscular HGB Conc 33.0 g/dL (31.8-35.4); Mean Corpuscular Hemoglobin 29.7 pg (27.0-31.2); Mean Corpuscular Volume 89.8 fl (81-99); Nucleated Red Blood Cells % 0 %; Platelet Count 310 K/mm3 (142-424); Red Blood Count 3.91 M/mm3 (4.20-5.40); Red Cell Distribution Width-SD 45.6 fL; White Blood Count 11.8 K/mm3 (4.8-10.8)
[2025-04-05 10:52] LABS: Glucose 1 Hour 144 mg/dL (74-100)
[2025-04-05 15:05] LABS: RPR W/RFX Titers Nonreactive (Nonreactive)
== END 2025-04-05 23:59 | disposition home or self-care (01) ==
PROVIDERS: PCP Family Medicine; Visit Provider Obstetrics & Gynecology
DX: O26.899 Other specified pregnancy related conditions, unspecified trimester (principal); O99.340 Other mental disorders complicating pregnancy, unspecified trimester; O99.210 Obesity complicating pregnancy, unspecified trimester; E66.9 Obesity, unspecified; F41.9 Anxiety disorder, unspecified; Z67.91 Unspecified blood type, Rh negative; Z3A.00 Weeks of gestation of pregnancy not specified
CPT/HCPCS: 36415; 82947; 85025; 86592

== ENCOUNTER 2025-04-07 07:15 | Outpatient (CLI) | payer OTHER, SELFPAY ==
[2025-04-07 08:21] LABS: Glucose,Fasting 97 mg/dl (74-100)
[2025-04-07 10:09] LABS: Glucose 1 Hour 163 mg/dL (74-100)
[2025-04-07 10:42] LABS: Glucose 2 Hour 122 mg/dL (74-100)
[2025-04-07 12:56] LABS: Glucose 3 Hour 103 mg/dL (74-100)
== END 2025-04-07 23:59 | disposition home or self-care (01) ==
LOC: LAB 07:16
PROVIDERS: PCP Family Medicine; Visit Provider Obstetrics & Gynecology
DX: O99.210 Obesity complicating pregnancy, unspecified trimester (principal)
CPT/HCPCS: 36415; 82951

== ENCOUNTER 2025-04-12 09:28 | Outpatient (CLI) | payer OTHER, SELFPAY ==
[2025-04-12] MEDS: RHO(D) IMMUNE GLOBULIN 1,500 UNIT (300MCG) SYRINGE 300 MCG IM (11:24)
[2025-04-12 11:26] VITALS: BP 132/71; PULSE 94; RESP 18; O2SAT 100
== END 2025-04-12 11:26 | disposition home or self-care (01) ==
LOC: INF 09:28
PROVIDERS: PCP Family Medicine; Visit Provider Obstetrics & Gynecology
DX: O26.899 Other specified pregnancy related conditions, unspecified trimester (principal); Z67.91 Unspecified blood type, Rh negative; O99.340 Other mental disorders complicating pregnancy, unspecified trimester; F41.9 Anxiety disorder, unspecified; O99.210 Obesity complicating pregnancy, unspecified trimester; Z3A.00 Weeks of gestation of pregnancy not specified
CPT/HCPCS: 36415; 96372; J2790

== ENCOUNTER 2025-06-01 10:00 | Outpatient (CLI) | payer OTHER, SELFPAY | END 2025-06-01 23:59 | disposition home or self-care (01) | LOC: LAB.DROPOF 06-02 09:15 | PROVIDERS: PCP Nurse Practitioner Obstetrics & Gynecology; Visit Provider Nurse Practitioner Obstetrics & Gynecology | DX: O99.340 Other mental disorders complicating pregnancy, unspecified trimester (principal); O99.210 Obesity complicating pregnancy, unspecified trimester; F41.9 Anxiety disorder, unspecified; Z3A.00 Weeks of gestation of pregnancy not specified | CPT/HCPCS: 86403 ==

== ENCOUNTER 2025-06-02 08:04 | Outpatient (CLI) | payer OTHER, SELFPAY ==
--- OUTSIDE RECORDS SUMMARY | 2024-01-28 07:00 | XMS_ITS ---
[facility] Organization [facility] Address [address] [place] [id number] Care Team Providers Care Dairy Quality Assurance Officer Name Role Phone Alejandro Avilez Primary Care Provider Sarah Smith Unavailable [phone] Edie Felder Unavailable [phone] Allergies Allergen (clinical drug ingredient) Drug/Non Drug Allergy documented on EMR Reaction Allergy Type Onset Date Status Information temporarily unavailable Penicillins rash,hives Drug Allergy Active Results Component Value Reference Range Notes H-TSH Reviewed date:02/03/2024 02:12:46 PM Interpretation:Normal Performing Lab: Notes/Report: TSH 1.30 0.465-4.68 uIU/mL H-CBC Reviewed date:02/03/2024 02:12:46 PM Interpretation:Normal Performing Lab: Notes/Report: WBC 8.4 4.8-10.8 K/mm3 RBC 4.47 4.20-5.40 M/mm3 HGB 12.8 12.2-16.2 g/dL HCT 39.9 37.0-47.0 % MCV 89.4 81-99 fl MCH 28.7 27.0-31.2 pg MCHC 32.1 31.8-35.4 g/dL RDW 14.3 11.5-17.5 % PLT 410 142-424 K/mm3 MPV 8.4 7.4-10.4 fl NE% 62.5 37.0-80.0 % LY% 29.7 10-50 % MO% 5.4 1.7-9.3 % EO% 1.7 0.1-12.0 % BA% 0.7 0.1-2.0 % NE# 5.2 1.8-7.8 K/mm3 LY# 2.5 0.7-4.5 K/mm3 MO# 0.5 0.1-1.0 K/mm3 EO# 0.1 0.0-0.4 K/mm3 BA# 0.1 0-0.2 K/mm3 H-VITAMIN D Reviewed date:02/03/2024 02:12:46 PM Interpretation:42 Performing Lab: Notes/Report: TVITD 42.0 30-100 ng/mL Deficient <20 ng/mL Insufficient 20-30 ng/mL Sufficient 30-100 ng/mL Potential Toxicity >100 ng/mL H-Lipid Panel Reviewed date:02/03/2024 02:12:46 PM Interpretation:dldl 68 Performing Lab: Notes/Report: Patient Fasting? Y TRIG 84 30-150 mg/dl CHOL 151 140-200 mg/dl DLDL 68.38 100-129 mg/dL VLDL 17 0-40 mg/dL HDL 51 40-60 mg/dl CHLHDL 3.0 1-3.5 H-CMP Reviewed date:02/03/2024 02:12:46 PM Interpretation:ast 38 Performing Lab: Notes/Report: NA 139 136-145 mmol/L K 3.8 3.5-5.1 mmoL/L CL 105 98-107 mmol/L CO2 25 22.0-30.0 mmol/L GAP 12.8 5-15 mEq/L BUN 13 7-17 mg/dl CREATT 0.70 0.52-1.04 mg/dl GFRAA 124 >60 ML/MIN EGFR 103 >60 ml/min GLU 98 74-100 mg/dl CA 9.2 8.4-10.2 mg/dl BILIT 0.6 0.2-1.3 mg/dl AST 38 14-36 U/L ALT 28 12-78 U/L TP 6.9 6.3-8.2 g/dl ALB 4.1 3.5-5.0 g/dl GLOB 2.8 1.3-3.2 g/dL AGRATIO 1.5 1.1-1.8 ALP 84 38-126 U/L H-VITAMIN B12 Reviewed date:02/03/2024 02:12:46 PM Interpretation:Normal Performing Lab: Notes/Report: VITB12 420 239-931 pg/mL H-T4 free Reviewed date:02/03/2024 02:12:46 PM Interpretation:Normal Performing Lab: Notes/Report: T4F 0.93 0.78-2.19 ng/dl REASON FOR VISIT headaches eye twitching Medications Medication SIG (Take, Route, Frequency, Duration) Notes Start Date End Date Status Maxalt-FEATHER TRIMMER 10 MG 1 tablet at the onse t of migraine, can repeat in 2 hours if migraine has not resolved Orally Once a day, prn 01/28/2024 Active Venlafaxine HCl ER 75 MG 1 cap(s) orally once a day; Duration: 90 days Active Problems Problem Type SNOMED Code ICD Code Onset Dates Problem Status W/U Status Risk Notes Problem Information temporarily unavailable Migraine with aura and without status migrainosus, not intractable (G43.109) Active confirmed Problem Information temporarily unavailable Eye twitch (G24.5) Active confirmed Vital Signs Weight 244.6 lbs 01/28/2024 Blood pressure systolic 130 mm Hg 01/28/20 24 Blood pressure diastolic 84 mm Hg 024 Heart Rate 85 /min 01/28/2024 Height 67 in 01/28/2024 BMI 38.31 kg/m2 01/28/2024 Encounters Encounter Location Date Provider Diagnosis [facility] [address] [facility] [address] [place] [address] [place] [id number] 01/28/2024 Edie Crowdy Migraine with aura a nd without status migrainosus, not intractable G43.109 ; Other fatigue R53.83 ; Screening, lipid Z13.220 and Eye twitch G24.5 Assessments Encounter Date Diagnosis (ICD Code) Assessment Notes Treatment Notes Treatment Clinical Notes Section Notes 01/28/2024 Migraine with aura and without status migrainosus, not intractable (ICD-10 - G43.109) 01/28/2024 Other fatigue (ICD-10 - R53.83) 01/28/2024 Screening, lipid (ICD-10 - Z13.220) 01/28/2024 Eye twitch (ICD-10 - G24.5) Will check labs. If normal, may need to see dermatology for a botox injection. Plan Of Treatment Medication Medication Name Sig Start Date Stop Date Notes Maxalt-FEATHER TRIMMER 10 MG 1 tablet at the onse t of migraine, can repeat in 2 hours if migraine has not resolved Orally Once a day, prn 01/28/2024 Treatment Notes Assessment Notes Eye twitch Will check labs. If normal, may need to see dermatology for a botox injection. Next Appt Details Follow Up: via phone to repo rt test results, Reason: Progress Notes * JESS DIAZRDOB:[birth year] (24 yo F)Acc No.[id number]:01/28/2024 Progress Notes Patient: CHE BELTRAN Provider: LEWIS Barron :2000 A ge:23 Y S ex:Female Date:01/28/2024 Address:[place], [id number] Pcp:Alejandro Avilez Subjective: * Chief Complaints: * 1 . Headaches eye twitching. * HPI: N eurology: The pt is here today with c/o migraine headache off and on for 3-4 months. She did stop her control about the time she started having migraines. Pt states over the past 3-4 weeks her right eye has been twitching off and on. Pt also c/o sweats and fatigue. 23 year old female presents with c/o headache. * ROS: D ERMATOLOGY: no R jeremy. n o H wily. G ASTROENTEROLOGY: no N ausea. n o V omiting. n o D iarrhea.? U ROLOGY: no D ifficulty urinating. n o B lood in urine. * Medical History: A llergic rhinitis. * Surgical History: t ubes in ears . * Hospitalization/Major Diagno stic Procedure: s yonathan as above , [facility] 08/2019. * Family History: F ather: alive. M other: alive. P aternal Grand Father: . P aternal Grand Mother: alive. M aternal Grand Father: . M aternal Grand Mother: alive. 1 sister(s) . . * Social History: C URRENT TOBACCO USE S moking Status: Patient does NOT smoke, Second hand smoke exposure: No. C affeine: yes, frequency:daily. Home smoke detector use: yes. Marital Status: Single. Past smoking status: no. * Medications: T aking Venlafaxine HCl ER 75 MG Capsule Extended Release 24 Hour 1 cap(s) orally once a day , Discontinued Vitamin B 12 500 MCG Tablet 1 tab(s) orally once a day , Discontinued Estarylla 0.25-35 MG-MCG Tablet TAKE ONE TABLET BY MOUTH ONCE A DAY , Medication List reviewed and reconciled with the patient * Allergies: P enicillins: rash,hives. Objective: * Vitals: W t:244.6, Temp:98.2, BP:130/84, HR:85, Nurse:DEBBY, Ht: 67, BMI:38.31. * Examination: G eneral Examination: General Appearance: N AD. H EENT: sclera and conjunctiva clear, PERRLA, TM's normal, translucent, EOM's with normal ROM. O ral cavity: n o lesions, mucosa moist and WNL, no erythema. N jim: s upple, no lymphadenopathy. C hest: normal shape and expansion. H eart: R SR. L ungs: c lear to auscultation. A bdomen: bowel sounds present, soft and nontender, no organomegaly or masses, no guarding or rigidity. N eurologic Exam: alert and oriented, normal cranial nerves II-XII sensory & motor WNL, no cerebellar signs. S kin: n ormal, no rash. P eripheral pulses: n ormal (2+) bilaterally. E xtremities: n o leg edema. Assessment: * Assessment: 1. M igraine with aura and without status migrainosus, not intractable - G43.109 (Primary) 2 . O ther fatigue - R53.83 3 . S creening, lipid - Z13.220 4 . E ye twitch - G24.5 Plan: * Treatment: Value Reference Range T SH 1.30 0.465-4.68 - uIU/mL * Edie Felder 02/03/2024 2: 12:36 PM > see TE ?LAB: H-CBC (Collection Date & Time - 01/29/2024 09:06 AM)?Normal* Value Reference Range W BC 8.4 4.8-10.8 - K/mm3 * R BC 4.47 4.20-5.40 - M/mm3 * H GB 12.8 12.2-16.2 - g/dL * H CT 39.9 37.0-47.0 - % * M CV 89.4 81-99 - fl * M CH 28.7 27.0-31.2 - pg * M CHC 32.1 31.8-35.4 - g/dL * R DW 14.3 11.5-17.5 - % * P LT 410 142-424 - K/mm3 * M PV 8.4 7.4-10.4 - fl * N E% 62.5 37.0-80.0 - % * L Y% 29.7 10-50 - % * M O% 5.4 1.7-9.3 - % * E O% 1.7 0.1-12.0 - % * B A% 0.7 0.1-2.0 - % * N E# 5.2 1.8-7.8 - K/mm3 * L Y# 2.5 0.7-4.5 - K/mm3 * M O# 0.5 0.1-1.0 - K/mm3 * E O# 0.1 0.0-0.4 - K/mm3 * B A# 0.1 0-0.2 - K/mm3 * Edie Felder 02/03/2024 2: 12:36 PM > see TE ?LAB: H-CMP (Collection Date & Time - 01/29/2024 09:06 AM)?ast 38* Value Reference Range N A 139 136-145 - mmol/L * K 3.8 3.5-5.1 - mmoL/L * C L 105 98-107 - mmol/L * C O2 25 22.0-30.0 - mmol/L * G AP 12.8 5-15 - mEq/L * B UN 13 7-17 - mg/dl * C REATT 0.70 0.52-1.04 - mg/dl * G FRAA 124 >60 - ML/MIN * E GFR 103 >60 - ml/min * G PAYTON 98 74-100 - mg/dl * C A 9.2 8.4-10.2 - mg/dl * B ILIT 0.6 0.2-1.3 - mg/dl * A ST 38 H 14-36 - U/L * A LT 28 12-78 - U/L * T P 6.9 6.3-8.2 - g/dl * A LB 4.1 3.5-5.0 - g/dl * G LOB 2.8 1.3-3.2 - g/dL * A GRATIO 1.5 1.1-1.8 - * A LP 84 38-126 - U/L * Edie Felder 02/03/2024 2: 12:36 PM > see TE ?LAB: H-T4 free (Collection Date & Time - 01/29/2024 09:06 AM)?Normal* Value Reference Range T 4F 0.93 0.78-2.19 - ng/dl * Edie Felder 02/03/2024 2: 12:36 PM > see TE 2.?Other fatigue?LAB: H-VITAMIN D (Collection Date & Time - 01/29/2024 09:06 AM)?42* Value Reference Range T VITD 42.0 30-100 - ng/mL * Edie Felder 02/03/2024 2: 12:36 PM > see TE ?LAB: H-VITAMIN B12 (Collection Date & Time - 01/29/2024 09:06 AM)?Normal* Value Reference Range V ITB12 420 239-931 - pg/mL * Edie Felder 02/03/2024 2: 12:36 PM > see TE 3.?Screening, lipid?LAB: H-Lipid Panel (Collection Date & Time - 01/29/2024 09:06 AM)?dldl 68* Value Reference Range T RIG 84 30-150 - mg/dl * C HOL 151 140-200 - mg/dl * D LDL 68.38 L 100-129 - mg/dL * V LDL 17 0-40 - mg/dL * H DL 51 40-60 - mg/dl * C HLHDL 3.0 1-3.5 - * Edie Felder 02/03/2024 2: 12:36 PM > see TE 4.?Eye twitch? Notes: Will check labs. If normal, may need to see dermatology for a botox injection.?? * Follow Up: v ia phone to report test results * Images: Billing Information: * Visit Code: 92334 Office Visit, Est Pt., Level 4. * Procedure Codes: * Electronic signature of LEWIS Rivera on 06/02/2025 at 08:07 AM EDT Sign off status: Pending * Provider: LEWIS Barron Date: 0 01/28/2024 Generated for Printi ng/Faxing/eTransmitting on: 1 08:07 AM EDT History and Physical Notes * HPI (History of Present Illness) Category Sub-Category Detail Notes Category Not es Neurology headache Examination Category Sub-Category Detail Notes Category Not es General Examination HEENT: sclera and c onjunctiva clear, PERRLA, TM's normal, translucent, EOM's with normal ROM Heart: RSR Lungs: clear to auscultatio n Abdomen: bowel sounds present , soft and nontender, no organomegaly or masses, no guarding or rigidity Extremities: no leg edema General Appearance: NAD Skin: normal, no rash Neurologic Exam: alert and oriented, normal cranial nerves II-XII sensory & motor WNL, no cerebellar signs Neck: supple, no lymphaden opathy Oral cavity: no lesions, mucosa m oist and WNL, no erythema Peripheral pulses: normal (2+) bilatera lly Chest: normal shape and exp ansion
--- OUTSIDE RECORDS SUMMARY | 2024-02-17 11:00 | XMS_ITS ---
[facility] Address [address] [place] [id number] Care Team Providers Care Rubber Press Operator Name Role Phone ElbertaAlejandro Primary Care Provider [phone] Sarah Smith Unavailable [phone] Edie Felder Unavailable [phone] Allergies Allergen (clinical drug ingredient) Drug/Non Drug Allergy documented on EMR Reaction Allergy Type Onset Date Status Information temporarily unavailable Penicillins rash,hives Drug Allergy Active REASON FOR VISIT check up and refills Medications Medication SIG (Take, Route, Fr equency, Duration) Notes Start Date End Date Status DULoxetine HCl 60 MG 1 capsule Orally On ce a day; Duration: 30 day(s) 02/17/2024 Active Cephalexin 500 MG 1 tablet Orally Two times a day; Duration: 10 day(s) 02/17/2024 Active Maxalt-OBEDIENCE TRAINER 10 MG 1 tablet at the onse t of migraine, can repeat in 2 hours if migraine has not resolved Orally Once a day, prn 01/28/2024 Active Problems Problem Type SNOMED Code ICD Code Onset Dates Problem Status W/U Status Risk Notes Problem Information temporarily unavailable BMI 38.0-38.9, adult (Z68.38) Active confirmed Vital Signs Weight 243 lbs 02/17/2024 Blood pressure systolic 122 mm Hg 02/17/20 24 Blood pressure diastolic 83 mm Hg 024 Heart Rate 99 /min 02/17/2024 Height 67 in 02/17/2024 BMI 38.06 kg/m2 02/17/2024 Encounters Encounter Location Date Provider Diagnosis [facility] [address] [facility] [address] [place] [id number] 02/17/2024 Edie Felder Generalized anxiety disorder F41.1 ; Folliculitis L73.9 and BMI 38.0-38.9,adult Z68.38 Assessments Encounter Date Diagnosis (ICD Code) Assessment Notes Treatment Notes Treatment Clinical Notes Section Notes 02/17/2024 Generalized anxiety disorder (ICD-10 - F41.1) 02/17/2024 Folliculitis (ICD-10 - L73.9) 02/17/2024 BMI 38.0-38.9,adult (ICD-10 - Z68.38) She will call her insurance company to see if they cover any weight loss medication. Plan Of Treatment Medication Medication Name Sig Start Date Stop Date Notes DULoxetine HCl 60 MG 1 capsule Orally On ce a day; Duration: 30 day(s) 02/17/2024 Venlafaxine HCl ER 75 MG 1 cap(s) orally once a day Cephalexin 500 MG 1 tablet Orally Two times a day; Duration: 10 day(s) 02/17/2024 Treatment Notes Assessment Notes BMI 38.0-38.9,adult She will call her in [employer] to see if they cover any weight loss medication. Next Appt Details Follow Up: via phone to repo rt progress, Reason: Progress Notes * JESS DIAZRDOB:[birth year] (24 yo F)Acc No.[id number]:02/17/2024 Progress Notes Patient: Jame IDALIAHANNACHE Provider: LEWIS Barron :2000 A ge:23 Y S ex:Female Date:02/17/2024 Address:[place], [id number] Pcp:Alejandro Avilez Subjective: * Chief Complaints: * 1 . Check up and refills. * HPI: P sychology: Pt is here today for a check up and refills. Pt sts she is needing refills on her Venlafaxine but wants to know if there is something else she can take because it causes her to sweat. D ermatology: Has more infected hairs in the vaginal area and is requesting some abx. E ndocrinology: Cannot lose weight and would like to talk about weight loss medication. * ROS: D ERMATOLOGY: no R jeremy. n o H wily. G ASTROENTEROLOGY: no N ausea. n o V omiting. n o D iarrhea.? U ROLOGY: no D ifficulty urinating. n o B lood in urine. * Medical History: A llergic rhinitis. * Surgical History: t ubes in ears . * Hospitalization/Major Diagno stic Procedure: s yonathan as above , [facility] 08/2019. * Family History: F ather: alive. [...] smoking status: no. * Medications: T aking Maxalt-OBEDIENCE TRAINER 10 MG Tablet Disintegrating 1 tablet at the onset of migraine, can repeat in 2 hours if migraine has not resolved Orally Once a day, prn , Taking Venlafaxine HCl ER 75 MG Capsule Extended Release 24 Hour 1 cap(s) orally once a day , Medication List reviewed and reconciled with the patient * Allergies: P enicillins: rash,hives. Objective: * Vitals: W t:243, Temp:98.4, BP:122/83, HR:99, Nurse:JORDIN, Ht: 67, BMI:38.06. * Examination: P sychology: General Appearance: N AD. G rooming : a dequate.?Eye contact : n ormal. M ood : p leasant. H eart: R SR. L ungs: c lear to auscultation. A bdomen: bowel sounds present, soft and nontender, no organomegaly or masses, no guarding or rigidity. N eurologic Exam: I ntact, gait normal. ? Assessment: * Assessment: 1. G eneralized anxiety disorder - F41.1 (Primary) 2 . F olliculitis - L73.[address] 38.0-38.9,adult - Z68.38 Plan: * Treatment: 2. F olliculitis Start Cephalexin Tablet, 500 MG, 1 tablet, Orally, Two times a day, 10 day(s), 20 Tablet, Refills 0. 3. B CT 38.0-38.9,adult Notes: She will call her insurance company to see if they cover any weight loss medication. ? * Follow Up: v ia phone to report progress * Images: Billing Information: * Visit Code: 32995 Office Visit, Est Pt., Level 3. * Procedure Codes: * Electronic signature of LEWIS Rivera on 06/02/2025 at 08:07 AM EDT Sign off status: Pending * Provider: LEWIS Barron Date: 0 02/17/2024 Generated for Guidoi ng/Famercyg/eTransmitting on: 1 08:07 AM EDT History and Physical Notes * Examination Category Sub-Category Detail Notes Category Not es Psychology Heart: RSR Lungs: clear to auscultatio n Abdomen: bowel sounds present , soft and nontender, no organomegaly or masses, no guarding or rigidity General Appearance: NAD Neurologic Exam: Intact, gait normal Grooming : adequate Eye contact : normal Mood : pleasant
--- OUTSIDE RECORDS SUMMARY | 2025-01-10 06:00 | XMS_ITS ---
Author Organization [facility] Address [address] [facility] [address] [place] [id number] Care Team Providers Care Digital Coordinator Name Role Phone Alejandro Avilez Primary Care Provider Sarah Smith Unavailable [phone] Lynn Baugh Unavailable [phone] Allergies Allergen (clinical drug ingredient) Drug/Non Drug Allergy documented on EMR Reaction Allergy Type Onset Date Status Information temporarily unavailable Penicillins rash,hives Drug Allergy Active REASON FOR VISIT refills Medications Medication SIG (Take, Route, Frequency, Duration) Notes Start Date End Date Status Venlafaxine HCl ER 75 MG 1 cap(s) orally once a day; Duration: 90 days Due for check up Active Maxalt-VALIDATION MANAGER 10 MG 1 tablet at the onse t of migraine, can repeat in 2 hours if migraine has not resolved Orally Once a day, prn 01/28/2024 Active Problems Problem Type SNOMED Code ICD Code Onset Dates Problem Status W/U Status Risk Notes Problem Information temporarily unavailable Acute anxiety (F41.9) Active confirmed Vital Signs Weight 237.4 lbs 01/10/2025 Blood pressure systolic 120 mm Hg 01/11/20 25 Blood pressure diastolic 70 mm Hg 025 Heart Rate 79 /min 01/10/2025 Height 67 in 01/10/2025 BMI 37.18 kg/m2 01/10/2025 Encounters Encounter Location Date Provider Diagnosis [facility] [address] [facility] [address] [place] [id number] 01/10/2025 Lynn Baugh Acute anxiety F41.9 Assessments Encounter Date Diagnosis (ICD Code) Assessment Notes Treatment Notes Treatment Clinical Notes Section Notes 01/10/2025 Acute anxiety (ICD-10 - F41.9) Continue with medication, her OB said this medication was safe for her to be on. She has been on this for 3-4 years and says it is still working. Sent in her refiils. Plan Of Treatment Medication Medication Name Sig Start Date Stop Date Notes Venlafaxine HCl ER 75 MG 1 cap(s) orally once a day; Duration: 90 days Due for check up Treatment Notes Assessment Notes Acute anxiety Continue with medica tion, her OB said this medication was safe for her to be on. She has been on this for 3-4 years and says it is still working. Sent in her refiils. Next Appt Details Follow Up: 6 Months,and prn, Reason: Progress Notes * JOEJESSRDOB:[birth year] (24 yo F)Acc No.[id number]:01/10/2025 Progress Notes Patient: HANNA BELTRANYLER Provider: ESSENCE Resendez :2000 A ge:24 Y S ex:Female Date:01/10/2025 Address:[place], [id number] Pcp:Alejandro Avilez Subjective: * Chief Complaints: * 1 . Refills. * HPI: P sychology: 24 year old female presents with c/o Anxiety T he pt is here for a check up and is needing refills sent to [facility] pharmacy. Pt is excited she is with her first child. Pt is fasting. Denies : stress. D enies : sleep disturbances. D enies : depression. * ROS: D ERMATOLOGY: no R jeremy. n o H wily. G ASTROENTEROLOGY: no N ausea. n o V omiting. n o D iarrhea.? U ROLOGY: no D ifficulty urinating. n o B lood in urine. * Medical History: A llergic rhinitis. * Surgical History: t ubes in ears . * Hospitalization/Major Diagno stic Procedure: s yonathan as above , [facility] 08/2019. * Family History: F ather: [...] smoking status: no. * Medications: T aking Maxalt-VALIDATION MANAGER 10 MG Tablet Disintegrating 1 tablet at the onset of migraine, can repeat in 2 hours if migraine has not resolved Orally Once a day, prn , Taking Venlafaxine HCl ER 75 MG Capsule Extended Release 24 Hour 1 cap(s) orally once a day , Notes to Pharmacist: Due for check up, Discontinued Cephalexin 500 MG Tablet 1 tablet Orally Two times a day , Medication List reviewed and reconciled with the patient * Allergies: P enicillins: rash,hives. Objective: * Vitals: W t: 237.4, Temp: 98.0, BP: 120/70, HR: 79, Nurse: DEBBY, Ht: 67, BMI:37.18. * Examination: G eneral Examination: General Appearance: a ppears healthy, NAD. H eart: R RR. L ungs: n ormal, clear to auscultation. N eurologic Exam: a lert and oriented.?Skin: n ormal, no rash. P eripheral pulses: n ormal (2+) bilaterally. 1 5 weeks with a baby boy. P sychology: General Appearance: a ppears healthy, NAD. G rooming :?adequate, neat. E ye contact : cuate garcia. c urrent meds work well, OB said it was ok for her to take. Assessment: * Assessment: 1. A cute anxiety - F41.9 (Primary) Plan: * Treatment: * Procedure Codes: 1 036F TOBACCO NON-USER, G8783 BP SCR PRFRM RCMDD DEFIND SCR INTVL, G8752 MOST RECENT SYSTOLIC BP < 140MM HG, G8754 MOST RECENT DIASTOLIC BP < 90MM HG * Follow Up: 6 Months,and prn * Images: Billing Information: * Visit Code: 91331 Office Visit, Est Pt., Level 3. * Procedure Codes: 1036F TOBACCO NON-USER. G8783 BP SCR PRFRM RCMDD DEFIND SCR INTVL. G8752 MOST RECENT SYSTOLIC BP < 140MM HG. G8754 MOST RECENT DIASTOLIC BP < 90MM HG. * Electronic signature of Bethanie Baugh APRN on 06/02/2025 at 08:06 AM EDT Sign off status: Pending * Provider: ESSENCE Resendez Date: 0 01/10/2025 Generated for Donaldo carlos/Shelly/Zachary on: 1 08:06 AM EDT History and Physical Notes * HPI (History of Present Illness) Category Sub-Category Detail Notes Category Not es Psychology sleep disturbances stress Anxiety The pt is here for a check up and is needing refills sent to [facility] pharmacy. Pt is excited she is with her first child. Pt is fasting depression Examination Category Sub-Category Detail Notes Category Not es General Examination Heart: RRR 15 weeks with a baby boy Lungs: normal, clear to aus cultation General Appearance: appears healthy, NAD Skin: normal, no rash Neurologic Exam: alert and oriented Peripheral pulses: normal (2+) bilatera lly Psychology General Appearance: appears healthy, NAD current meds work well, OB said it was ok for her to take Grooming : adequate, neat Eye contact : normal
--- OUTSIDE RECORDS SUMMARY | 2025-06-02 08:09 | XMS_ITS | Patient Health Record ---
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 Name Role Phone Alejandro Avilez Primary Care Provider Sarah Smith Unavailable [phone] Lynn Baugh Unavailable [phone] Allergies Allergen (clinical drug ingredient) Drug/Non Drug Allergy documented on EMR Reaction Allergy Type Onset Date Status Information temporarily unavailable Penicillins rash,hives Drug Allergy Active Reason For Referral No Information Medications Medication SIG (Take, Route, Frequency, Duration) Notes Start Date End Date Status Venlafaxine HCl ER 75 MG 1 cap(s) orally once a day; Duration: 90 days Due for check up Active Maxalt-TURNTABLE ENGINEER 10 MG 1 tablet at the onse t of migraine, can repeat in 2 hours if migraine has not resolved Orally Once a day, prn 01/28/2024 Active Immunizations Vaccine Route Administration Date Status Comme nts xFluzone (6mos and older)-trivalent Unknown 05/23/2021 Administered Varivax SC Subcutaneous 02/25/2011 Administered Tetanus Tdap-Adacel (over 7yrs) IM Intramuscular 02/25/2011 Administered Tetanus Tdap-Adacel (over 7yrs) IM Intramuscular 03/20/2021 Administered ppd ID Intradermal 03/13/2020 Administered ppd ID Intradermal 03/20/2020 Administered ppd ID Intradermal 01/28/2022 Administered Menactra IM Intramuscular 02/25/2011 Administered Menactra IM Intramuscular 03/01/2018 Administered Hepatitis A (adult) IM Intramuscular 02/17/2020 Administer ed Hep A- Pediatric IM Intramuscular 03/10/2018 Administered Fluzone Quad (6months&older) IM Intramuscular 08/20/2022 Administered COVID 19 Pfizer Unknown 03/19/2021 Administered COVID 19 Pfizer Unknown 04/13/2021 Administered COVID 19 Moderna Unknown 02/04/2022 Administered Problems Problem Type SNOMED Code ICD Code Onset Dates Problem Status W/U Status Risk Notes Problem Information temporarily unavailable Generalized anxiety disorder (F41.1) Active confirmed Problem Information temporarily unavailable Encounter for initial prescription of contraceptive pills (Z30.011) Active confirmed Problem Information temporarily unavailable Acute anxiety (F41.9) Active confirmed Problem Information temporarily unavailable Migraine with aura and without status migrainosus, not intractable (G43.109) Active confirmed Problem Information temporarily unavailable BMI 38.0-38.9,adult (Z68.38) Active confirmed Problem Information temporarily unavailable Allergic rhinitis, unspecified seasonality, unspecified trigger (J30.9) Active confirmed Problem Information temporarily unavailable Eye twitch (G24.5) Active confirmed Vital Signs Heart Rate 79 /min 01/10/2025 Blood pressure diastolic 70 mm Hg 01/10/2025 Height 67 in 01/10/2025 Blood pressure systolic 120 mm Hg 01/10/2025 Weight 237.4 lbs 01/10/2025 BMI 37.18 kg/m2 01/10/2025 Encounters Encounter Location Date Provider Diagnosis [facility] [address] [facility] [address] [place] [address], [place] [phone] 01/10/2025 Lynn Baugh Acute anxiety F41.9 Assessments Encounter Date Diagnosis (ICD Code) Assessment Notes Treatment Notes Treatment Clinical Notes Section Notes 01/10/2025 Acute anxiety (ICD-10 - F41.9) Continue with medication, her OB said this medication was safe for her to be on. She has been on this for 3-4 years and says it is still working. Sent in her refiils. Plan Of Treatment No Information Insurance Providers Payer Name Payer Address Payer Phone Subscriber Number Group Number Insured Name Patient Relationship to Insured Coverage Start Date Coverage End Date [facility] [address] [address] [place] [address] [id number] CHE DIAZ Self - patient is the insured Medical (General) History Medical History History ICD Code allergic rhinitis Surgical History Surgery Date(Month/Year) tubes in ears Hospitalization History Reason Date(Month/Year) [facility] [place] 08/2019 same as above
--- NOTE | 2025-06-02 08:30 | US_ITS ---
PROCEDURE: US OB BIOPHYSICAL PROFILE CLINICAL INDICATION: BPP and Growth for LGA COMPARISON: US US OB /MATERNAL DETAIL from 02/13/2025 FINDINGS: Transabdominal sonographic images of the uterus were obtained. From her established due date she is 36weeks 0 days. The following parameters are obtained: Viable Fetus in the cephalic presentation with an a lateral posterior placenta grade 2. Average ultrasound age is 37weeks 4days Estimated weight 3,149g, 6 lb 15 oz The cervix measures 2.74 cm Measurements: heart Rate = 161bpm BPD = 38weeks 2days, 97 percentile HC = 38weeks 6days, 83 percentile AC = 37weeks 5days, 93 percentile FL = 35weeks 1day, 23 percentile HC/AC is 1 FL/BPD is 0.73 FL/AC is 0.2 83 percentile Amniotic fluid index: 12.35cm, MVP 4.43 cm Qualitative AFV:2 Breathing movements: 2 Gross Body Movements: 2 Tone: 2 Biophysical profile score: 8 No obvious anomalies evident.Kidneys, profile, stomach, bladder, four-chamber heart, three-vessel cord appear normal. IMPRESSION: 1. Viable fetus in the cephalic presentation with a lateral posterior placenta grade 2. 2. The fluid is within normal limits with an amniotic fluid index 12.35 cm, MVP 4.43 cm. 3. Biophysical profile is 8/8 with good breathing movement and movement seen. 4. There has been good interval growth with the fetus currently 83rd percentile. The head circumference and BPD are over 2 weeks ahead. The abdominal circumference is almost 2 weeks ahead. 5. Limited anatomical scan appears normal. Dictated by: Abelardo Choi MD 06/03/2025 08:34 Abelardo Choi MD in [place] 06/03/2025 08:34
== END 2025-06-02 23:59 | disposition home or self-care (01) ==
LOC: RAD 08:05
PROVIDERS: PCP Family Medicine; Visit Provider Nurse Practitioner Obstetrics & Gynecology
DX: O36.63X0 Maternal care for excessive fetal growth, third trimester, not applicable or unspecified (principal); Z3A.36 36 weeks gestation of pregnancy
CPT/HCPCS: 76816; 76819

== ENCOUNTER 2025-06-13 14:32 | Inpatient (IN) | payer OTHER, SELFPAY ==
[2025-06-13 13:49] VITALS: BP 139/90; BMI 40.8
[2025-06-13 13:51] LABS: Microscopic, Urine URINE MICROSCOPIC (MICROSCOPIC)
[2025-06-13 13:53] LABS: Bilirubin,Urine Negative (Negative); Color,Urine YELLOW (Yellow); Glucose,Urine (UA) Negative (Negative); Ketones,Urine Negative (Negative); Leukocyte Esterase,Urine TRACE (Negative); PH,Urine 6.0 (5.0-8.5); Protein,Urine 1+ (Negative); Specific Gravity, Urine >= 1.030 (1.005-1.030); Urobilinogen,Urine 0.2 EU/dl (0.2)
[2025-06-13 13:55] LABS: Hematocrit 34.9 % (37.0-47.0); Hemoglobin 11.8 g/dL (12.2-16.2); Immature Granulocytes % 0.3 %; Mean Corpuscular HGB Conc 33.8 g/dL (31.8-35.4); Mean Corpuscular Hemoglobin 29.7 pg (27.0-31.2); Mean Corpuscular Volume 87.9 fl (81-99); Nucleated Red Blood Cells % 0 %; Platelet Count 277 K/mm3 (142-424); Red Blood Count 3.97 M/mm3 (4.20-5.40); Red Cell Distribution Width-SD 44.7 fL; White Blood Count 8.7 K/mm3 (4.8-10.8)
[2025-06-13 14:02] LABS: Alanine Aminotransferase 21 U/L (12-78); Anion Gap 11.7 mEq/L (5-15); Aspartate Amino Transferase 28 U/L (14-36); Blood Urea Nitrogen 11 mg/dl (7-17); Calcium 8.9 mg/dl (8.4-10.2); Carbon Dioxide 20 mmol/L (22.0-30.0); Chloride 107 mmol/L (98-107); Creatinine Clearance Estimated 237 mL/min (50-200); Creatinine,Serum 0.70 mg/dl (0.52-1.04); Estimated Glomerular Filt Rate 102 ml/min (>60); GFR (African American) 123 ML/MIN (>60); Glucose 115 mg/dl (74-100); Potassium 3.7 mmoL/L (3.5-5.1); Sodium 135 mmol/L (136-145); Uric Acid 5.1 mg/dl (2.5-6.2)
[2025-06-13 14:06] LABS: Activated Partial Thrombo Time 23.5 seconds (22.8-30.6); INR 0.93 (0.9-1.1); Prothrombin Time 10.4 seconds (10.1-12.5)
[2025-06-13 14:08] VITALS: BP 128/88
--- NOTE | 2025-06-13 14:42 | HMH.PHAINT1 ---
Pharmacy Intervention Comments: MEDICATION RECONCILIATION COMPLETED ON PATIENT USING EXTERNAL FILL HISTORY FROM PHARMACY. -NANDINI ASTUDILLO, ALEXD
[2025-06-13 14:49] LABS: Fibrinogen 416 mg/dL (229.9-363.5)
[2025-06-13 15:01] VITALS: BP 136/87
--- NOTE | 2025-06-13 15:03 | P.HP_ITS ---
OB - H&P: HPI Antepartum History of Present Illness Chief complaint: Gestational hypertension History of present illness: Mrs Alin Solis is a 24 yo at 37w4d sent to [facility] L&D for elevated blood pressure. She felt off at work today and checked her BP. She states it was elevated. She came to the office for BP check and BP was 180/110. Upon arrival to L&D BP was 139/90 and 142/96. Denies headaches and vision changes. BP has been normotensive at prior office visits. She has had good care. complicated by anxiety. She has been taking venlafaxine 75 mg PO daily. Ultrasound 06/02/25 demonstrated EFW 83 %il, DERRICK WNL, BPP 03/17. GBS negative. History of Present Criteria for establishing EDC:: LMP confirmed by 1st trimester US care: good care Ultrasounds: normal mid trimester US Obstetrical complications: gestational hypertension Medical complications: none Labs Blood type: A (-) negative Rubella: immune RPR/VDRL: nonreactive GBS status: negative HBsAG: negative [facility] Disclaimer: The information contained in this section may have been updated after the patient was seen, as this information can be updated by other users. Medical History (Updated 06/13/25 @ 15:14 by Batool Medina DO) Gestational hypertension Rh negative state in antepartum period Anxiety during , antepartum Maternal obesity affecting , antepartum Anxiety Migraine Surgical History History of tympanostomy tube placement History of tonsillectomy Family History Other No significant family history Social History Smoking Status: Never smoker second hand exposure: No alcohol intake: never current occupational status: employed Travel in the last 8 weeks?: None household members: family housing: house Have you lived/traveled outside US in past 30 days?: No Contact w/someone who lives/traveled outside US past 30 days?: No Exposure to someone with infectious disease in past 14 days?: No Do you have a fever (greater than 100.4 F or 38 C)?: No Have you tested positive for COVID-19?: No Exposed to someone with COVID-19 in past 14 days?: No Do you have a sore throat?: No Do you have a cough?: No Do you have any weakness?: No Do you have any diarrhea?: No Are you experiencing any unusual bleeding?: No Do you have any muscle aches/pain?: No Do you have any abdominal pain?: No Are you experiencing loss of taste or smell?: No Other Medical History Have you received the Flu Vaccine for this season: No Have you received the Pneumonia Vaccine: No Review of Systems Review of Systems Review of systems:: pertinent systems reviewed and negative unless documented below Meds Home Medications and Allergies Home Medications ?Medication ?Instructions ?Recorded ?Confirmed ?Type vits no.126-ferrous fum 1 tab PO DAILY 06/13/25 History 28 mg iron-folic acid 800 mcg tablet (Classic ) venlafaxine 75 mg capsule,extended 75 mg PO DAILY 11/0806/13/25 History release 24 hr New Prescriptions to Start Prescriptions: Allergies Allergy/AdvReac Type Severity Reaction Status Date / Time Penicillins (PENICILLINS) Allergy Mild Hives Verified 06/07/25 09:49 OB - H&P: Exam Physical Exam Vital signs: BP 128/88 06/13/25 14:08 Constitutional no acute distress and cooperative Routine HEENT Exam Head: Present normocephalic and atraumatic Eye: Absent conjunctivae pink ENT: Present mucous membranes moist Routine Neck Exam Present full ROM Routine Respiratory Exam Present CTA bilaterally and normal respiratory effort Routine Cardiovascular Exam Present RRR Routine Abdominal Exam Present soft (Gravid); Absent tenderness Routine Rectal Exam Patient deferred: visual exam Routine Exam External: Present normal urethra appearance; Absent erythema, swelling, tenderness, lesions or lacerations Routine Extremities Exam Present full ROM; Absent edema or calf tenderness Routine Neurological Exam Present alert, moving all extremities and normal speech Routine Psychiatric Exam Present normal affect and cooperative Detailed Labor and Delivery Exam Dilation (cm): 1 Effacement (%): 50 Cervix position: mid station: -3 Consistency: medium Membranes: intact Baseline heart rate: 130 monitor accelerations: Present monitor decelerations: None 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 variability: Moderate (-) OB - Results Labs Labs: Short CBC 06/13/25 Range/Units 13:44 WBC 8.7 (4.8-10.8) K/mm3 Hgb 11.8 L (12.2-16.2) g/dL Hct 34.9 L (37.0-47.0) % Plt Count 277 (142-424) K/mm3 BMP 06/13/25 13:44 Sodium 135 L Potassium 3.7 Chloride 107 Carbon Dioxide 20 L BUN 11 Creatinine 0.70 Glucose 115 H Calcium 8.9 Liver Function 06/13/25 Range/Units 13:44 AST 28 (14-36) U/L ALT 21 (12-78) U/L Urine 06/13/25 Range/Units 13:34 Urine Color Yellow (Yellow) Urine Appearance Cloudy (Clear) Urine pH 6.0 (5.0-8.5) Ur Specific [place] >= 1.030 (1.005-1.030) Urine Protein 1+ A (Negative) Urine Glucose (UA) Negative (Negative) OB - A/P Antepartum (1) Gestational hypertension: Status: Acute (2) Maternal obesity affecting , antepartum: Status: Acute (3) Anxiety during , antepartum: Status: Acute (4) Rh negative state in antepartum period: Status: Acute Additional Plan Additional Information:: Admit to [facility] L&D for induction of labor secondary to newly diagnosed GHTN. -- [facility] labs reviewed and within normal limits -- Urine spot protein/creatinine ratio 0.114 Discussed elective induction of labor with Cytotec and Pitocin. Discussed that Cytotec is not FDA approved for induction of labor but is commonly used to ripen the cervix and induce contractions. Discussed risks of induction include distress/intolerance to labor, uterine hyperstimulation, uterine rupture, two day induction of labor, failed induction, possible increased risk of section, and hemorrhage. All questions addressed and answered. She voiced understanding of medications, risks, benefits and alternatives. Induction consent signed. Induction of labor with Cytotec 25 mcg PO x 4 hrs PRN, max 3 doses followed by Pitocin GBS negative Close monitoring
[2025-06-13 15:44] LABS: Magnesium 1.7 mg/dl (1.6-2.3)
[2025-06-13 16:03] LABS: WBC,Urine 50-100 #/hpf (0-3)
[2025-06-13 16:04] LABS: Bacteria,Urine 4+ /lpf; Mucus,Urine 4+ /lpf; Squamous Epithelial Cell,Urine 20-50 #/hpf (0-5)
[2025-06-13 19:30] VITALS: BP 143/89; PULSE 80; RESP 18; TEMP 36.8; O2SAT 99
[2025-06-13 23:00] VITALS: BP 126/67; PULSE 72; RESP 16; TEMP 37; O2SAT 100
[2025-06-13] MEDS: PROMETHAZINE HCL 25MG/ML 1ML VIAL 12.5 MG IV (23:51)
[2025-06-14] MEDS: BUTORPHANOL TARTRATE 1 MG/ML VIAL IV (02:08)
[2025-06-14 04:00] VITALS: BP 146/87; PULSE 71; RESP 16; TEMP 37; O2SAT 98
[2025-06-14] MEDS: DEXTROSE 5%-LACTATED RINGERS 1,000 ML 125 ML IV ×2 (04:45→12:47)
[2025-06-14] MEDS: OXYTOCIN/RINGERS LACTATE 30 UNITS/500 ML BAG IV (04:45)
[2025-06-14 07:08] VITALS: BP 141/87; PULSE 84; RESP 18; TEMP 36.9; O2SAT 97
[2025-06-14] MEDS: LACTATED RINGERS 1000ML 1,000 ML 500 ML IV (07:34)
--- NOTE | 2025-06-14 08:22 | EXP.ANES.CKL ---
[facility] Disclaimer: The information contained in this section may have been updated after the patient was seen, as this information can be updated by other users. Medical History Gestational hypertension Rh negative state in antepartum period Anxiety during , antepartum Maternal obesity affecting , antepartum Anxiety Migraine Surgical History History of tympanostomy tube placement History of tonsillectomy Family History Other No significant family history Social History (Updated 06/14/25 @ 07:42 by Diamante Juárez RN) Smoking Status: Never smoker second hand exposure: No alcohol intake: never substance use type: denies use current occupational status: employed Travel in the last 8 weeks?: None household members: family housing: house [facility] Anesthesia Checklist Patient Identification Patient Identification: Arm Band and Verbal (Name & ) Structural Data Admitted From: Inpatient Planned Operative Procedure/s: Labor Epidural Verified Documents: Surgical Consent NPO Status Verified Time NPO: 00:00 Chart Verification Results Verified: CBC Additional verifications Patient : Yes Anesthesia Reactions: No Airway Assessment Mallampati Score:: Class II C-Spine Mobility Assessed: Yes TMJ Mobility Assessed: Yes Dentition: Good Dentition Neurological Assessment Level of Consciousness: Awake, Alert and Appropriate Hx Seizures: No Numbness or tingling in extremities: No Anesthesia Plan Anesthesia Risk discussed: Yes Anesthesia Plan: Verified ASA Class: II Anesthesia Type: Epidural
[2025-06-14] MEDS: ePHEDrine SULF 50MG/ML VIAL 10 MG IV (08:42)
[2025-06-14] MEDS: ONDANSETRON 4MG/2ML VIAL 4 MG IV (14:57)
[2025-06-14 16:21] LABS: RPR W/RFX Titers Nonreactive (Nonreactive)
--- NOTE | 2025-06-14 16:50 | EXP.LABOR.NO ---
Labor Note Subjective: Date: 06/14/25 Time: 16:50 regular contraction Objective: NST:: Reactive Contractions:: every 2-3 minutes Cervical Dilation:: 9-10 Effacement:: 90% Station: +3 Membranes: artificially ruptured Fetus: Monitoring?: Yes monitoring type:: Combination Assessment: Labor progressing?: Yes Cephalopelvic disproportion?: No Plan: Anesthesia for epidural?: Yes Plan for ?: No Continue to monitor?: Yes Continue pushing?: Yes Comment:: She has been pushing for about an hour. The baby's head is coming down. With each contraction the baby's head comes down a little farther. Nonstress test is reactive. Contractions are every 2 to 3 minutes. We will expect a vaginal delivery. It is possible that the baby's head is OP but we feel that there is sufficient room.
--- NOTE | 2025-06-14 17:37 | EXP.DN ---
Delivery Note Delivery Date:: 06/14/25 Delivery Time:: 17:20 Anesthesia Type: Epidural Was labor medically induced?: Yes Induction method: per misoprostol protocol Gestational age (weeks): 37 Infant delivered prior to 39 weeks?: Yes Justification for early elective delivery:: Gestational Hypertension Gender: Male at 1 minute: 8 at 5 minutes: 9 LAC or MLE?: LAC Delivery Procedure:: Mrs Alin Solis is a 24 yo at 37w4d sent to [facility] L&D for elevated blood pressure. She felt off at work today and checked her BP. She states it was elevated. She came to the office for BP check and BP was 180/110. Upon arrival to L&D BP was 139/90 and 142/96. Denies headaches and vision changes. BP has been normotensive at prior office visits. She has had good care. complicated by anxiety. She has been taking venlafaxine 75 mg PO daily. Ultrasound 06/02/25 demonstrated EFW 83 %il, DERRICK WNL, BPP 8/8. GBS negative. She received doses of Cytotec and then in the morning of June 14, 2025 she had her membranes ruptured and was started on IV oxytocin. She progressed throughout the day with labor epidural to full dilation. She then delivered spontaneously a liveborn male child at 5:20 PM in the afternoon of June 14, 2025. On deliver the head the anterior shoulder then easily delivered followed by the rest the 's body atraumatically. The oropharynx and nasopharynx were bulb suctioned. The baby was vigorous so we allowed the cord to continue to pulsate for approximately 1 minute. The cord was then doubly clamped and cut and the was placed on the mother's abdomen for further care. The nurses assigned Apgars of 8 at 1 minute and 9 at 5 minutes. We then obtained cord blood. She received IV oxytocin and then using gentle traction on the cord and countertraction on the fundus I was able to easily deliver the placenta intact 3 minutes after delivery. He had a normal three-vessel cord. She had bilateral small labial tears that were repaired with interrupted 2-0 Vicryl Rapide suture. She also had a small first-degree perineal laceration that was repaired with interrupted 2-0 Vicryl Rapide suture. Her estimated blood loss was approximately 200 cc. Laceration:: vaginal and labial Placental Delivery Description: Spontaneous
[2025-06-14 20:40] VITALS: BP 128/66; PULSE 114; RESP 18; TEMP 36.7; O2SAT 98
[2025-06-15] MEDS: ACETAMINOPHEN 500MG TAB 1000 MG PO ×2 (02:53→22:40)
[2025-06-15] MEDS: IBUPROFEN 400 MG TABLET 800 MG PO (02:53)
[2025-06-15 05:51] LABS: Hematocrit 31.1 % (37.0-47.0); Hemoglobin 10.6 g/dL (12.2-16.2)
[2025-06-15 06:26] VITALS: BP 136/77; PULSE 74; RESP 18; TEMP 36.6; O2SAT 97
[2025-06-15 08:30] VITALS: BP 137/80; PULSE 82; RESP 17; TEMP 36.8; O2SAT 96
--- NOTE | 2025-06-15 09:14 | P.PN_ITS ---
Subjective *Date: 06/15/25 *Time: 09:14 Interval history: PPD # 1 s/p Feeling well. Pain controlled. Bottle feeding. Lochia is appropriate. Voiding without difficulty and passing flatus. Tolerating regular diet. Denies fever/chills, chest pain and shortness of breath. No headaches, vision changes, lightheadedness/dizziness. She admits to mild lower extremity swelling. No calf pain. Ambulating well ad karley. Medical Exam Vital signs and Labs for Last 24 Hours: Vital Signs Temp Pulse Resp BP Pulse Ox O2 Del Method 06/15/25 06:26 97.9 F 74 18 136/77 97 Room Air 06/14/25 20:40 98.1 F 114 H 18 128/66 98 Room Air Intake and Output 06/14/25 06/15/25 06/15/25 23:59 07:59 15:59 Intake Total 1193.516 / 3256.250 Output Total 300 / 300 Balance 893.516 / 2956.250 Intake: Intake, Total IV Amount 1193.516 / 3256.250 Dextrose 5%-Lactated Ringers 1, 756.25 / 1756.25 000 ml @ 125 mls/hr IV .Q8H [facility] Rx#:[id number] Oxytocin/Ringers Lactate 30 437.266 / 500.000 units In 500 ml @ 0.002 UNITS/ MIN 2 mls/hr IV .Q25H [facility] Rx#: [id number] Output: Output, Urine Amount 300 / 300 Laboratory Results - last 24 hr 06/13/25 14:50: RPR w/Rflx to Titer Nonreactive 06/15/25 04:44: Hgb 10.6 L, Hct 31.1 L I & O for Labs for Last 24 Hours: Intake & Output 06/12/25 06/13/25 06/14/25 06/15/25 23:59 23:59 23:59 23:59 Intake Total 3256.250 / 3256.250 Output Total 300 / 300 Balance 2956.250 / 2956.250 Weight 269 lb Head: Present atraumatic and normocephalic ENT: Present normal exam Neck: Present normal inspection Respiratory: Present CTA bilaterally and normal respiratory effort Cardiac: Present Reg Rate and Rhythm GI: Present soft; Absent distention or tenderness Comments:: Uterine fundus firm and below umbilicus Rectal (female): Present deferred (female): Present deferred Extremities: Present full ROM and edema (+1 bilateral lower extremity edema); Absent calf tenderness Neuro: Present alert, awake and moves all extremities Assessment and Plan *Assessment and plan (1) Status post vaginal delivery: Status: Acute Category: Surgical (2) Gestational hypertension: Status: Acute Qualifiers: Trimester: third trimester Qualified Code(s): O13.3 - Gestational [-induced] hypertension without significant proteinuria, third trimester Category: Medical Code(s): O13.9 - Gestational [-induced] hypertension without significant proteinuria, unspecified trimester (3) Maternal obesity affecting , antepartum: Status: Acute Qualifiers: Obesity type affecting : unspecified obesity Qualified Code(s): O99.210 - Obesity complicating , unspecified trimester Category: Medical Code(s): O99.210 - Obesity complicating , unspecified trimester (4) Anxiety during , antepartum: Status: Acute Category: Medical Code(s): O99.340 - Other mental disorders complicating , unspecified trimester; F41.9 - Anxiety disorder, unspecified (5) Rh negative state in antepartum period: Status: Acute Category: Medical Code(s): O26.899 - Other specified related conditions, unspecified trimester; Z67.91 - Unspecified blood type, Rh negative (6) Acute blood loss anemia: Status: Acute Category: Medical Code(s): D62 - Acute posthemorrhagic anemia Plan Continue routine care Encouraged increased ambulation AM Hgb 10.6 BP normotensive. Will continue to monitor Anticipate d/c tomorrow unless BP increases
[2025-06-15 19:01] VITALS: BP 132/72
[2025-06-15 21:54] VITALS: BP 140/80; PULSE 87; RESP 18; TEMP 36.7; O2SAT 97
[2025-06-15] MEDS: SENNA 8.6MG TABLET 8.6 MG PO (22:40)
[2025-06-16 06:30] VITALS: BP 146/78; PULSE 87; RESP 18; TEMP 36.7; O2SAT 97
[2025-06-16 08:35] VITALS: BP 142/78; PULSE 91; RESP 17; TEMP 36.9; O2SAT 97
[2025-06-16] MEDS: WITCH HAZEL 40 PADS/BOX 1 EACH TP (08:40)
[2025-06-16 08:45] VITALS: BP 140/78
--- NOTE | 2025-06-16 09:05 | EXP.DC.SUM ---
General Admission date:: 06/13/25 Discharge date: 06/16/25 HPI HPI HPI: Mrs Alin Solis is a 24 yo at 37w4d sent to [facility] L&D for elevated blood pressure. She felt off at work today and checked her BP. She states it was elevated. She came to the office for BP check and BP was 180/110. Upon arrival to L&D BP was 139/90 and 142/96. Denies headaches and vision changes. BP has been normotensive at prior office visits. She has had good care. complicated by anxiety. She has been taking venlafaxine 75 mg PO daily. Ultrasound 06/02/25 demonstrated EFW 83 %il, DERRICK WNL, BPP 8/8. GBS negative. Hospital Course Hospital Course Hospital Course: Alin is a 24yo day #2 from a normal spontaneous vaginal delivery at 37 weeks and 4 days gestation secondary to gestational hypertension. She delivered a live viable male on 06/14/2025 at 1720. Apgars were 8 and 9 at 1 and 5 minutes respectively. Infant weighed 7 pounds 12 ounces at . She has done well and has remained afebrile with her at her hospitalization. She is eating and drinking and ambulating. She is bottlefeeding. Her lochia is normal. She has A - blood, and infant also had a negative blood. RhoGAM not indicated. She is rubella immune and was group B streptococcus negative. She will be discharged home to follow-up with Dr. Medina in 2 weeks time. She will continue with her vitamins and iron. She will take ibuprofen as well. She was given the usual instructions with respect to limiting her activity, driving and sexual activity. She was given instructions with respect to wound care. Her condition on discharge is stable and improved. Exam Data for Last 24 hours Vital signs and Labs for Last 24 Hours: Temp Pulse Resp BP Pulse Ox O2 Del Method 98.4 F 91 H 17 140/78 97 Room Air 06/16/25 08:35 06/16/25 08:35 06/16/25 08:35 06/16/25 08:45 06/16/25 08:35 06/16/25 08:35 I & O for Last 24 hours: Intake & Output 06/13/25 06/14/25 06/15/2506/16/25 23:59 23:59 23:59 23:59 Intake Total 3256.250 / 3256.250 Output Total 300 / 300 Balance 2956.250 / 2956.250 Weight 269 lb Microbiology Reports for the Last 24 Hours: Microbiology 06/13/25 13:34 Urine,Clean Catch Urine Culture - Final Multiple organisms, suggests contamination. Constitutional Constitutional: no acute distress *Routine HEENT Exam Head: Present normocephalic Eye: Present EOMI and PERRL ENT: Present mucous membranes moist *Routine Neck Exam Neck: Present supple; Absent lymphadenopathy *Routine Respiratory Exam Respiratory: Present CTA bilaterally *Routine Cardiovascular Exam Cardiovascular: Present RRR *Routine Abdominal Exam Abdominal: Present soft and normoactive bowel sounds; Absent tenderness *Routine Extremities Exam Extremities: Absent cyanosis, clubbing or edema *Routine Skin Exam Skin: Present warm; Absent rash *Routine Neurological Exam Neurological: Present alert and oriented X3 DS: Diagnosis Discharge Diagnosis (1) Status post vaginal delivery: Status: Acute (2) Gestational hypertension: Status: Acute Code(s): O13.9 - Gestational [-induced] hypertension without significant proteinuria, unspecified trimester Qualifiers: Trimester: third trimester Qualified Code(s): O13.3 - Gestational [-induced] hypertension without significant proteinuria, third trimester (3) Maternal obesity affecting , antepartum: Status: Acute Code(s): O99.210 - Obesity complicating , unspecified trimester Qualifiers: Obesity type affecting : unspecified obesity Qualified Code(s): O99.210 - Obesity complicating , unspecified trimester (4) Anxiety during , antepartum: Status: Acute Code(s): O99.340 - Other mental disorders complicating , unspecified trimester; F41.9 - Anxiety disorder, unspecified (5) Rh negative state in antepartum period: Status: Acute Code(s): O26.899 - Other specified related conditions, unspecified trimester; Z67.91 - Unspecified blood type, Rh negative (6) Acute blood loss anemia: Status: Acute Code(s): D62 - Acute posthemorrhagic anemia Meds Home Medications and Allergies Home Medications ?Medication ?Instructions ?Recorded ?Confirmed ?Type vits no.126-ferrous fum 1 tab PO DAILY 11/18/24 06/13/25 History 28 mg iron-folic acid 800 mcg tablet (Classic ) venlafaxine 75 mg capsule,extended 75 mg PO DAILY 11/18/24 06/13/25 History release 24 hr acetaminophen 500 mg tablet 500 mg PO Q6H PRN fever or pain 06/16/25 Rx #30 tabs ferrous sulfate 325 mg (65 mg 325 mg PO DAILY #30 tabs 06/16/25 Rx iron) tablet,delayed release ibuprofen 800 mg tablet 800 mg PO Q8H PRN pain #60 tabs 06/16/25 Rx sennosides 8.6 mg tablet (Senna 8.6 mg PO BIDP PRN Constipation 06/16/25 Rx Lax) #60 tabs New Prescriptions to Start Prescriptions: acetaminophen Marissa Solo ferrous sulfate Marissa Solo ibuprofen Marissa Solo sennosides [Senna Lax] Marissa Solo Allergies Allergy/AdvReac Type Severity Reaction Status Date / Time Penicillins (PENICILLINS) Allergy Mild Hives Verified 06/07/25 09:49 Discharge Plan Disposition Patient Disposition: Home, Self-Care Condition: Good Discharge Order Discharge Orders: Discharge Order (Routine); Ordered 06/16/25 Ordered By: Marissa Solo Follow up Plan Follow up with: Batool Medina DO [Staff Physician, ENGLISH [employer]] - 06/29/25 3:30 pm Prescriptions/Medication Reconciliation: New acetaminophen 500 mg tablet 500 mg PO Q6H PRN (Reason: fever or pain) Qty: 30 3RF sennosides [Senna Lax] 8.6 mg Tablet 8.6 mg PO BIDP PRN (Reason: Constipation) Qty: 60 2RF ibuprofen 800 mg tablet 800 mg PO Q8H PRN (Reason: pain) Qty: 60 2RF ferrous sulfate 325 mg (65 mg iron) tablet,delayed release (DR/EC) 325 mg PO DAILY Qty: 30 3RF Continued venlafaxine 75 mg capsule,extended release 24hr 75 mg PO DAILY Classic 28 mg iron- 800 mcg tablet 1 tab PO DAILY Problem Reconciliation Problems Reviewed?: Yes Patient Discharge Instructions ACTIVITY: Limited activity DIET: continue same diet and regular diet Additional Instructions: Congratulations!! Discharge: 1. Take 800 mg Ibuprofen every 8 hours as needed for pain. You can also take 500-1000 mg of Tylenol in between doses, every 6-8 hours. 2. Nothing in the vagina for 6 weeks - no intercourse, douching or tampons. No tub baths/hot tubs or swimming pools 3. Reasons to return to L&D or call On-Call doctor - fever (greater than 100.4) - heavy vaginal bleeding (soaking through 1 pad in less than 2 hours) - vaginal discharge (malodorous and/or purulent) - severe headaches not resolved by medication or r 4. depression/blues - Normal to feel anxious/overwhelmed for first 2 weeks - Talk to your doctor if: severe anxiety, trouble bonding with baby, withdrawing from other family members, thoughts of harming yourself or others Blood pressure and preeclampsia instructions - Please take your blood pressure 1-2 times per day - Please call if greater than 2 values are higher than: 150 systolic (the top number) or 100 diastolic (the bottom number). - Please go to the emergency room or labor and delivery triage if any value is higher than: 160 systolic (the top number) or 110 diastolic (the bottom number). - Please call if unrelenting headache (does not go away with rest or Tylenol or ibuprofen), changes in vision (spots, floaters, flashes of light), chest pain, shortness of breath, or right upper quadrant (liver) abdominal pain. *Nothing in the Vagina for 6 weeks* *No strenuous activity* *No heavy lifting* *No tub baths until okay's by * Batool Medina DO [facility] [phone] Patient Instructions: Depression, Hemorrhage, DI for Labor and Delivery, Vaginal , DI for Pre-eclampsia, [facility] Post Discharge Instructions Print Language: Afghan Providers Primary Care Provider: Alejandro Avilez Admit Provider: Marissa Solo Attending Provider: Marissa Solo
== END 2025-06-16 11:58 | disposition home or self-care (01) | DRG 806 ==
LOC: OBOUT 14:33 → OB 14:33
PROVIDERS: Nurse Practitioner Obstetrics & Gynecology; Obstetrics & Gynecology; Admitting Provider Obstetrics & Gynecology; PCP Family Medicine; Visit Provider Obstetrics & Gynecology
DX: O13.4 Gestational [pregnancy-induced] hypertension without significant proteinuria, complicating childbirth (principal); D62 Acute posthemorrhagic anemia; Z37.0 Single live birth; Z3A.37 37 weeks gestation of pregnancy; O99.214 Obesity complicating childbirth; O99.344 Other mental disorders complicating childbirth; F41.9 Anxiety disorder, unspecified; O90.81 Anemia of the puerperium; O70.0 First degree perineal laceration during delivery; O26.893 Other specified pregnancy related conditions, third trimester; Z67.11 Type A blood, Rh negative; Z88.0 Allergy status to penicillin; Z79.899 Other long term (current) drug therapy; Z23 Encounter for immunization
CPT/HCPCS: 36415; 51702; 59025; 80048; 81001; 82570; 83735; 84156; 84450; 84460; 84550; 85014; 85018; 85025; 85384; 85610; 85730; 86592; 86850; 87086; 94761; C1758; J0595; J2003; J2405; J2550; J2795; J3010; J7120; J7121